=== PATIENT | female | born 1945 | race Caucasian/White ===

== ENCOUNTER 2017-06-08 13:44 | Inpatient (IN) | payer MEDICARE ==
[~2017-06-08] VITALS: Ht 170.2 cm; Wt 99.2 kg
[2017-06-08 14:41] LABS: BASOPHILS # (AUTO) 0.02 x10^3/uL (0-0.1); BASOPHILS % (AUTO) 0 % (0-1); EOSINOPHILS % (AUTO) 4 % (1-7); LYMPHOCYTES # (AUTO) 1.53 x10^3/uL (1-3.4); LYMPHOCYTES % (AUTO) 16 % (22-44); MD NO; MEAN CORPUSCULAR HEMOGLOBIN 28.7 pg (27.0-34.8); MEAN CORPUSCULAR HGB CONC 33.4 g/dL (32.4-35.8); MEAN CORPUSCULAR VOLUME 86.1 fL (80-100); MONOCYTES # (AUTO) 0.63 x10^3/uL (0.2-0.8); MONOCYTES % (AUTO) 6 % (2-9); NEUTROPHILS # (AUTO) 7.31 x10^3/uL (1.8-6.8); NEUTROPHILS % (AUTO) 74 % (42-75); PLATELET COUNT 178 x10^3/uL (130-400); RED BLOOD COUNT 4.67 x10^6/uL (3.82-5.3); RED CELL DISTRIBUTION WIDTH 15.6 % (9.6-15.2)
[2017-06-08 14:56] LABS: ALANINE AMINOTRANSFERASE 23 U/L (12-78); ALBUMIN 3.1 g/dL (3.4-5.0); ANION GAP 5 mmol/L (5-15); CALCIUM 8.4 mg/dL (8.5-10.1); CHLORIDE 95 mmol/L (98-107); CREATININE 0.64 mg/dL (0.55-1.02)
[2017-06-08 15:00] LABS: ALKALINE PHOSPHATASE 86 U/L (45-117); BILIRUBIN,TOTAL 0.5 mg/dL (0.2-1.0); TOTAL PROTEIN 6.8 g/dL (6.4-8.2); TROPONIN I < 0.015 ng/mL (0.000-0.045)
[2017-06-08] MEDS ORDERED: AMLO10TA2 PO (16:19)
[2017-06-08] MEDS ORDERED: CEVI30CA4 PO (16:23)
[2017-06-08] MEDS ORDERED: DULO60CA7 PO (16:25)
[2017-06-08] MEDS ORDERED: IPRA4AER INH (16:25)
[2017-06-08] MEDS ORDERED: DIGO125T10 PO (16:27)
[2017-06-08] MEDS ORDERED: APIX5TAB PO (16:29)
[2017-06-08] MEDS ORDERED: INSU200I SQ-INSULIN (16:29)
[2017-06-08] MEDS ORDERED: INSU100V8 SQ (16:30)
[2017-06-08] MEDS ORDERED: LEVO50TA5 PO (16:30)
[2017-06-08] MEDS ORDERED: BUDE10.2 INH (16:31)
[2017-06-08] MEDS ORDERED: TRAM50TA2 PO (16:32)
[2017-06-08] MEDS ORDERED: ACET-76 PO (16:33)
[2017-06-08] MEDS ORDERED: ASPI-515 PO (16:35)
[2017-06-08] MEDS ORDERED: SITA100T PO (16:35)
[2017-06-08] MEDS ORDERED: PREG75CA PO (16:36)
[2017-06-08 16:38] LABS: CULTURE INDICATED? YES; MICROSCOPIC INDICATED
[2017-06-08] MEDS ORDERED: MAGN400T7 PO (16:38)
[2017-06-08] MEDS ORDERED: MIRA50TA PO (16:39)
[2017-06-08] MEDS ORDERED: METO50TA82 PO (16:39)
[2017-06-08] MEDS ORDERED: NYST1000 PO (16:40)
[2017-06-08] MEDS ORDERED: PANT40TA5 PO (16:41)
[2017-06-08] MEDS ORDERED: SODI650T PO (16:42)
[2017-06-08] MEDS ORDERED: ALBU18HF INH (17:59)
[2017-06-08] MEDS ORDERED: ALBU2.5V11 NEB (18:01)
[2017-06-08] MEDS ORDERED: FUROSEMIDE 20 MG/2 ML IV ONE (18:30)
[2017-06-08] MEDS ORDERED: FUROSEMIDE 20 MG/2 ML ONE (19:24)
[2017-06-08] MEDS ORDERED: POLYETHYLENE GLYCOL 17 GM PACKET PO PRN (20:30)
[2017-06-08] MEDS ORDERED: morphine SULFATE 10 MG/ML, 1ML IVPush PRN (20:30)
[2017-06-08] MEDS ORDERED: BISACODYL 10 MG SUPP PR PRN (20:30)
[2017-06-08] MEDS ORDERED: ACETAMINOPHEN 325 MG TABLET PO PRN (20:30)
[2017-06-08] MEDS ORDERED: hydrALAzine 20 MG/ML, 1ML IVPush PRN (20:30)
[2017-06-08] MEDS ORDERED: ENALAPRILAT 1.25 MG/ML, 2ML IVPush PRN (20:30)
[2017-06-08] MEDS ORDERED: ONDANSETRON 2MG/ML, 2ML IVPush PRN (20:30)
[2017-06-08 20:45] VITALS: BP 153/71
[2017-06-08 20:48] LABS: FREE T4 (FREE THYROXINE) 1.16 ng/dL (0.76-1.46); THYROID STIMULATING HORMONE 1.12 mIU/L (0.358-3.740)
[2017-06-08 20:52] LABS: HEMOGLOBIN A1C 7.1 % (4.2-6.3)
[2017-06-08] MEDS ORDERED: APIXABAN 5 MG TABLET PO SCH (21:00)
[2017-06-08] MEDS: TEMPLATE NON-FORMULARY MED. (Cevimeline Hcl 30 MG) PO SCH (21:00)
[2017-06-08] MEDS ORDERED: SODIUM BICARBONATE 650 MG TABLET PO SCH (21:00)
[2017-06-08] MEDS: HEPARIN 5,000 UNITS/ML, 1ML SQ SCH (22:48)
[2017-06-08] MEDS: MAGNESIUM OXIDE 400 MG TABLET PO SCH (22:48)
[2017-06-08] MEDS: SODIUM BICARBONATE 650 MG TABLET PO SCH (22:48)
[2017-06-08] MEDS: PREGABALIN 75 MG CAPSULE PO SCH (22:49)
[2017-06-08] MEDS: INSULIN DETEMIR 100 UNITS/ML, PEN SQ-INSULIN SCH (22:49)
[2017-06-08] MEDS: INSULIN ASPART 100 UNITS/ML, PEN SQ-INSULIN SCH (22:50)
[2017-06-08] MEDS ORDERED: ALBUTEROL/IPRATROPIUM 2.5MG/0.5MG, 3 ML NPPB SCH (23:00)
[2017-06-09] MEDS: ALBUTEROL/IPRATROPIUM 2.5MG/0.5MG, 3 ML NPPB SCH ×4 (01:18→19:50)
[2017-06-09 01:50] VITALS: BP 146/75
[2017-06-09 05:16] LABS: BASOPHILS % (AUTO) 0 % (0-1); EOSINOPHILS % (AUTO) 0 % (1-7); LYMPHOCYTES # (AUTO) 0.74 x10^3/uL (1-3.4); LYMPHOCYTES % (AUTO) 9 % (22-44); MD NO; MEAN CORPUSCULAR HEMOGLOBIN 28.9 pg (27.0-34.8); MEAN CORPUSCULAR HGB CONC 33.5 g/dL (32.4-35.8); MEAN CORPUSCULAR VOLUME 86.4 fL (80-100); MEAN PLATELET VOLUME 8.3 fL (7.4-10.4); MONOCYTES # (AUTO) 0.05 x10^3/uL (0.2-0.8); MONOCYTES % (AUTO) 1 % (2-9); NEUTROPHILS # (AUTO) 7.24 x10^3/uL (1.8-6.8); NEUTROPHILS % (AUTO) 90 % (42-75); PLATELET COUNT 183 x10^3/uL (130-400); RED BLOOD COUNT 4.71 x10^6/uL (3.82-5.3); RED CELL DISTRIBUTION WIDTH 15.6 % (9.6-15.2)
[2017-06-09 05:24] LABS: ALANINE AMINOTRANSFERASE 23 U/L (12-78); ALBUMIN 3.1 g/dL (3.4-5.0); ANION GAP 6 mmol/L (5-15); CALCIUM 8.5 mg/dL (8.5-10.1); CHLORIDE 93 mmol/L (98-107); CHOLESTEROL, TOTAL 199 mg/dL (140-239); CREATININE 0.61 mg/dL (0.55-1.02)
[2017-06-09 05:26] LABS: ALKALINE PHOSPHATASE 82 U/L (45-117); BILIRUBIN,TOTAL 0.5 mg/dL (0.2-1.0); CHOL/HDL RATIO 6.9; HDL CHOL % 15 % (28-40); HDL CHOLESTEROL (DIRECT) 29 mg/dL (40-60); LDL CHOLESTEROL,CALCULATED 137 mg/dL (54-169); LDL/HDL RATIO 4.7 (0.5-3.0); TOTAL PROTEIN 6.8 g/dL (6.4-8.2); TRIGLYCERIDES 165 mg/dL (50-200); VLDL CHOLESTEROL 33 mg/dL (0-25)
[2017-06-09] MEDS: LEVOTHYROXINE 50 MCG TABLET PO SCH (05:39)
[2017-06-09 07:46] VITALS: BP 138/79
[2017-06-09] MEDS: TEMPLATE NON-FORMULARY MED. (Mirabegron** (Myrbetriq**) 50 MG) PO SCH (09:00)
[2017-06-09] MEDS: TEMPLATE NON-FORMULARY MED. (Cevimeline Hcl 30 MG) PO SCH ×3 (09:00→21:17)
[2017-06-09] MEDS: FLUTICASONE/VILANTEROL 200-25MCG/INH INH SCH (09:00)
[2017-06-09] MEDS: FUROSEMIDE 20 MG/2 ML IV SCH (09:00)
[2017-06-09] MEDS: INSULIN ASPART 100 UNITS/ML, PEN SQ-INSULIN SCH ×4 (10:20→21:17)
[2017-06-09] MEDS: HEPARIN 5,000 UNITS/ML, 1ML SQ SCH ×3 (10:22→23:11)
[2017-06-09] MEDS: INSULIN DETEMIR 100 UNITS/ML, PEN SQ-INSULIN SCH ×2 (10:22→21:17)
[2017-06-09] MEDS: DIGOXIN 0.125 MG TABLET PO SCH (10:23)
[2017-06-09] MEDS: AMLODIPINE 5 MG TABLET PO SCH (10:23)
[2017-06-09] MEDS: METOPROLOL TARTRATE 50 MG TABLET PO SCH (10:23)
[2017-06-09] MEDS: ASPIRIN 81 MG TABLET EC PO SCH (10:24)
[2017-06-09] MEDS: DULOXETINE 30 MG CAPSULE.DR PO SCH (10:24)
[2017-06-09] MEDS: SODIUM BICARBONATE 650 MG TABLET PO SCH ×2 (10:24→21:16)
[2017-06-09] MEDS: SITAGLIPTIN 50MG TABLET PO SCH (10:25)
[2017-06-09] MEDS: PANTOPROZOLE 40MG TABLET PO SCH (10:25)
[2017-06-09] MEDS: PREGABALIN 75 MG CAPSULE PO SCH ×2 (10:25→21:16)
[2017-06-09] MEDS: MAGNESIUM OXIDE 400 MG TABLET PO SCH ×3 (10:25→21:16)
[2017-06-09] MEDS: SENNA/DOCUSATE TABLET PO SCH (10:26)
[2017-06-09 12:56] VITALS: BP 145/84
[2017-06-09 19:13] VITALS: BP 117/52
[2017-06-10 01:00] VITALS: BP 139/70
[2017-06-10] MEDS: LEVOTHYROXINE 50 MCG TABLET PO SCH (05:34)
[2017-06-10 06:05] VITALS: BP 148/79
[2017-06-10] MEDS: INSULIN ASPART 100 UNITS/ML, PEN SQ-INSULIN SCH ×4 (07:00→20:59)
[2017-06-10] MEDS: ALBUTEROL/IPRATROPIUM 2.5MG/0.5MG, 3 ML NPPB SCH ×4 (07:40→20:10)
[2017-06-10] MEDS: HEPARIN 5,000 UNITS/ML, 1ML SQ SCH ×3 (08:19→23:16)
[2017-06-10] MEDS: FUROSEMIDE 20 MG/2 ML IV SCH (08:19)
[2017-06-10] MEDS: SITAGLIPTIN 50MG TABLET PO SCH (08:19)
[2017-06-10] MEDS: ASPIRIN 81 MG TABLET EC PO SCH (08:20)
[2017-06-10] MEDS: INSULIN DETEMIR 100 UNITS/ML, PEN SQ-INSULIN SCH ×2 (08:20→20:58)
[2017-06-10] MEDS: MAGNESIUM OXIDE 400 MG TABLET PO SCH ×3 (08:21→20:58)
[2017-06-10] MEDS: METOPROLOL TARTRATE 50 MG TABLET PO SCH (08:21)
[2017-06-10] MEDS: PREGABALIN 75 MG CAPSULE PO SCH ×2 (08:21→20:58)
[2017-06-10] MEDS: AMLODIPINE 5 MG TABLET PO SCH (08:21)
[2017-06-10] MEDS: DULOXETINE 30 MG CAPSULE.DR PO SCH (08:22)
[2017-06-10] MEDS: TEMPLATE NON-FORMULARY MED. (Cevimeline Hcl 30 MG) PO SCH ×3 (08:22→20:59)
[2017-06-10] MEDS: SENNA/DOCUSATE TABLET PO SCH (08:22)
[2017-06-10] MEDS: PANTOPROZOLE 40MG TABLET PO SCH (08:22)
[2017-06-10] MEDS: SODIUM BICARBONATE 650 MG TABLET PO SCH ×2 (08:22→20:58)
[2017-06-10] MEDS: DIGOXIN 0.125 MG TABLET PO SCH (08:23)
[2017-06-10] MEDS: TEMPLATE NON-FORMULARY MED. (Mirabegron** (Myrbetriq**) 50 MG) PO SCH (08:23)
[2017-06-10] MEDS ORDERED: VANCOMYCIN PER PHARMACY MC PRN (09:00)
[2017-06-10] MEDS ORDERED: VANCOMYCIN PMX 1GM/200ML 200 ML IV ONE (09:00)
[2017-06-10] MEDS ORDERED: PHARMACOKINETIC MONITORING MC PRN (10:00)
[2017-06-10] MEDS: FLUTICASONE/VILANTEROL 200-25MCG/INH INH SCH (10:05)
[2017-06-10] MEDS: CEFTRIAXONE PMX 1GM/50ML 50 ML IV SCH (10:05)
[2017-06-10] MEDS: VANCOMYCIN 1,800 MG in SODIUM CHLORIDE 0.9% 250 ML IV SCH (12:51)
[2017-06-10 14:00] VITALS: BP 139/70
[2017-06-10 16:19] VITALS: BP 139/70
[2017-06-10] MEDS ORDERED: MAGNESIUM SULFATE PMX 2GM/50ML 50 ML IV ONE (17:00)
[2017-06-10] MEDS: CARVEDILOL 6.25 MG TABLET PO SCH (19:14)
[2017-06-10 19:23] VITALS: BP 160/80
[2017-06-11 00:25] VITALS: BP 136/69
[2017-06-11] MEDS: LEVOTHYROXINE 50 MCG TABLET PO SCH (05:52)
[2017-06-11] MEDS: CARVEDILOL 6.25 MG TABLET PO SCH ×2 (05:53→17:09)
[2017-06-11] MEDS: INSULIN ASPART 100 UNITS/ML, PEN SQ-INSULIN SCH ×4 (07:00→22:05)
[2017-06-11] MEDS: ALBUTEROL/IPRATROPIUM 2.5MG/0.5MG, 3 ML NPPB SCH ×4 (07:25→19:20)
[2017-06-11 07:40] VITALS: BP 133/70
[2017-06-11] MEDS: TEMPLATE NON-FORMULARY MED. (Cevimeline Hcl 30 MG) PO SCH ×3 (08:39→22:05)
[2017-06-11] MEDS: TEMPLATE NON-FORMULARY MED. (Mirabegron** (Myrbetriq**) 50 MG) PO SCH (08:39)
[2017-06-11] MEDS: HEPARIN 5,000 UNITS/ML, 1ML SQ SCH ×2 (08:58→17:06)
[2017-06-11] MEDS: INSULIN DETEMIR 100 UNITS/ML, PEN SQ-INSULIN SCH ×2 (08:59→22:05)
[2017-06-11] MEDS: DULOXETINE 30 MG CAPSULE.DR PO SCH (08:59)
[2017-06-11] MEDS: FLUTICASONE/VILANTEROL 200-25MCG/INH INH SCH (08:59)
[2017-06-11] MEDS: ASPIRIN 81 MG TABLET EC PO SCH (08:59)
[2017-06-11] MEDS: FUROSEMIDE 20 MG/2 ML IV SCH (08:59)
[2017-06-11] MEDS: PANTOPROZOLE 40MG TABLET PO SCH (09:00)
[2017-06-11] MEDS: AMLODIPINE 5 MG TABLET PO SCH (09:00)
[2017-06-11] MEDS: OXYcodone IR 5MG TABLET PO PRN ×2 (09:00→17:06)
[2017-06-11] MEDS: SODIUM BICARBONATE 650 MG TABLET PO SCH ×2 (09:00→22:04)
[2017-06-11] MEDS: MAGNESIUM OXIDE 400 MG TABLET PO SCH ×3 (09:00→22:04)
[2017-06-11] MEDS: SITAGLIPTIN 50MG TABLET PO SCH (09:00)
[2017-06-11] MEDS: SENNA/DOCUSATE TABLET PO SCH (09:00)
[2017-06-11] MEDS: PREGABALIN 75 MG CAPSULE PO SCH ×2 (09:00→22:04)
[2017-06-11] MEDS: DIGOXIN 0.125 MG TABLET PO SCH (09:00)
[2017-06-11] MEDS: CEFTRIAXONE PMX 1GM/50ML 50 ML IV SCH (12:18)
[2017-06-11] MEDS: VANCOMYCIN 1,800 MG in SODIUM CHLORIDE 0.9% 250 ML IV SCH (13:24)
[2017-06-11 14:00] VITALS: BP 146/70
[2017-06-11 17:00] VITALS: BP 146/70
[2017-06-11 20:22] VITALS: BP 148/72
[2017-06-12 01:28] VITALS: BP 139/56
[2017-06-12] MEDS: HEPARIN 5,000 UNITS/ML, 1ML SQ SCH ×3 (01:41→18:26)
[2017-06-12 05:23] LABS: ANION GAP 6 mmol/L (5-15); CALCIUM 8.7 mg/dL (8.5-10.1); CHLORIDE 95 mmol/L (98-107)
[2017-06-12 05:31] LABS: BASOPHILS # (AUTO) 0.04 x10^3/uL (0-0.1); BASOPHILS % (AUTO) 1 % (0-1); EOSINOPHILS # (AUTO) 0.12 x10^3/uL (0-0.4); EOSINOPHILS % (AUTO) 1 % (1-7); LYMPHOCYTES # (AUTO) 2.13 x10^3/uL (1-3.4); LYMPHOCYTES % (AUTO) 23 % (22-44); MD NO; MEAN CORPUSCULAR VOLUME 85.4 fL (80-100); MEAN PLATELET VOLUME 7.5 fL (7.4-10.4); MONOCYTES # (AUTO) 0.87 x10^3/uL (0.2-0.8); MONOCYTES % (AUTO) 10 % (2-9); NEUTROPHILS # (AUTO) 5.93 x10^3/uL (1.8-6.8); NEUTROPHILS % (AUTO) 65 % (42-75); PLATELET COUNT 226 x10^3/uL (130-400); RED CELL DISTRIBUTION WIDTH 15.4 % (9.6-15.2)
[2017-06-12 05:51] LABS: CREATININE 0.68 mg/dL (0.55-1.02)
[2017-06-12] MEDS: LEVOTHYROXINE 50 MCG TABLET PO SCH (06:07)
[2017-06-12] MEDS: CARVEDILOL 6.25 MG TABLET PO SCH ×2 (06:08→18:25)
[2017-06-12] MEDS: INSULIN ASPART 100 UNITS/ML, PEN SQ-INSULIN SCH ×4 (07:00→20:16)
[2017-06-12 07:42] VITALS: BP 138/82
[2017-06-12] MEDS: ALBUTEROL/IPRATROPIUM 2.5MG/0.5MG, 3 ML NPPB SCH ×4 (08:20→19:41)
[2017-06-12] MEDS: INSULIN DETEMIR 100 UNITS/ML, PEN SQ-INSULIN SCH ×2 (08:30→20:17)
[2017-06-12] MEDS: FUROSEMIDE 20 MG/2 ML IV SCH (08:36)
[2017-06-12] MEDS: FLUTICASONE/VILANTEROL 200-25MCG/INH INH SCH (08:36)
[2017-06-12] MEDS: PREGABALIN 75 MG CAPSULE PO SCH ×2 (08:37→20:15)
[2017-06-12] MEDS: MAGNESIUM OXIDE 400 MG TABLET PO SCH ×3 (08:37→20:15)
[2017-06-12] MEDS: DIGOXIN 0.125 MG TABLET PO SCH (08:37)
[2017-06-12] MEDS: SENNA/DOCUSATE TABLET PO SCH (08:37)
[2017-06-12] MEDS: ASPIRIN 81 MG TABLET EC PO SCH (08:37)
[2017-06-12] MEDS: AMLODIPINE 5 MG TABLET PO SCH (08:37)
[2017-06-12] MEDS: SODIUM BICARBONATE 650 MG TABLET PO SCH ×2 (08:37→20:15)
[2017-06-12] MEDS: PANTOPROZOLE 40MG TABLET PO SCH (08:37)
[2017-06-12] MEDS: DULOXETINE 30 MG CAPSULE.DR PO SCH (08:38)
[2017-06-12] MEDS: TEMPLATE NON-FORMULARY MED. (Mirabegron** (Myrbetriq**) 50 MG) PO SCH (08:38)
[2017-06-12] MEDS: TEMPLATE NON-FORMULARY MED. (Cevimeline Hcl 30 MG) PO SCH ×3 (08:38→20:17)
[2017-06-12] MEDS: CEFTRIAXONE PMX 1GM/50ML 50 ML IV SCH (08:51)
[2017-06-12] MEDS: SITAGLIPTIN 50MG TABLET PO SCH (08:57)
[2017-06-12] MEDS ORDERED: POTASSIUM CHLORIDE 20 MEQ TAB.ER.PRT PO ONE (10:00)
[2017-06-12] MEDS: VANCOMYCIN 1,800 MG in SODIUM CHLORIDE 0.9% 250 ML IV SCH (14:44)
[2017-06-12 14:49] VITALS: BP 135/70
[2017-06-12 20:00] VITALS: BP 148/76
[2017-06-13 01:20] VITALS: BP 163/80
[2017-06-13] MEDS: CARVEDILOL 6.25 MG TABLET PO SCH ×2 (05:23→17:10)
[2017-06-13] MEDS: LEVOTHYROXINE 50 MCG TABLET PO SCH (05:23)
[2017-06-13] MEDS: HEPARIN 5,000 UNITS/ML, 1ML SQ SCH ×3 (05:23→21:38)
[2017-06-13 06:04] LABS: CHLORIDE 96 mmol/L (98-107)
[2017-06-13 06:10] LABS: ANION GAP 6 mmol/L (5-15); CALCIUM 8.9 mg/dL (8.5-10.1)
[2017-06-13 06:47] VITALS: BP 165/80
[2017-06-13] MEDS: INSULIN ASPART 100 UNITS/ML, PEN SQ-INSULIN SCH ×4 (07:00→21:40)
[2017-06-13] MEDS: ALBUTEROL/IPRATROPIUM 2.5MG/0.5MG, 3 ML NPPB SCH ×4 (08:00→19:58)
[2017-06-13] MEDS: FLUTICASONE/VILANTEROL 200-25MCG/INH INH SCH (08:07)
[2017-06-13] MEDS: INSULIN DETEMIR 100 UNITS/ML, PEN SQ-INSULIN SCH ×2 (08:09→21:39)
[2017-06-13] MEDS: MAGNESIUM OXIDE 400 MG TABLET PO SCH ×3 (08:10→21:38)
[2017-06-13] MEDS: DULOXETINE 30 MG CAPSULE.DR PO SCH (08:10)
[2017-06-13] MEDS: ASPIRIN 81 MG TABLET EC PO SCH (08:10)
[2017-06-13] MEDS: PANTOPROZOLE 40MG TABLET PO SCH (08:10)
[2017-06-13] MEDS: SENNA/DOCUSATE TABLET PO SCH (08:10)
[2017-06-13] MEDS: AMLODIPINE 5 MG TABLET PO SCH (08:10)
[2017-06-13] MEDS: PREGABALIN 75 MG CAPSULE PO SCH ×2 (08:10→21:38)
[2017-06-13] MEDS: SODIUM BICARBONATE 650 MG TABLET PO SCH ×2 (08:10→21:38)
[2017-06-13] MEDS: SITAGLIPTIN 50MG TABLET PO SCH (08:10)
[2017-06-13] MEDS: TEMPLATE NON-FORMULARY MED. (Mirabegron** (Myrbetriq**) 50 MG) PO SCH (08:11)
[2017-06-13] MEDS: TEMPLATE NON-FORMULARY MED. (Cevimeline Hcl 30 MG) PO SCH ×3 (08:11→21:00)
[2017-06-13] MEDS: FUROSEMIDE 20 MG/2 ML IV SCH (08:11)
[2017-06-13] MEDS: DIGOXIN 0.125 MG TABLET PO SCH (09:48)
[2017-06-13] MEDS: CEFTRIAXONE PMX 1GM/50ML 50 ML IV SCH (09:48)
[2017-06-13] MEDS: VANCOMYCIN 1,800 MG in SODIUM CHLORIDE 0.9% 250 ML IV SCH (13:32)
[2017-06-13 15:07] VITALS: BP 137/75
[2017-06-13 20:30] VITALS: BP 149/76
[2017-06-14 01:18] VITALS: BP 146/71
[2017-06-14] MEDS: OXYcodone IR 5MG TABLET PO PRN ×2 (03:45→10:50)
[2017-06-14] MEDS: LEVOTHYROXINE 50 MCG TABLET PO SCH (05:56)
[2017-06-14] MEDS: HEPARIN 5,000 UNITS/ML, 1ML SQ SCH ×2 (05:56→13:00)
[2017-06-14] MEDS: CARVEDILOL 6.25 MG TABLET PO SCH (05:57)
[2017-06-14 06:35] VITALS: BP 152/82
[2017-06-14] MEDS: ALBUTEROL/IPRATROPIUM 2.5MG/0.5MG, 3 ML NPPB SCH ×2 (07:00→11:00)
[2017-06-14] MEDS: INSULIN ASPART 100 UNITS/ML, PEN SQ-INSULIN SCH ×2 (07:00→11:00)
[2017-06-14] MEDS: INSULIN DETEMIR 100 UNITS/ML, PEN SQ-INSULIN SCH (08:30)
[2017-06-14] MEDS: FLUTICASONE/VILANTEROL 200-25MCG/INH INH SCH (08:49)
[2017-06-14] MEDS: FUROSEMIDE 20 MG/2 ML IV SCH (08:50)
[2017-06-14] MEDS: TEMPLATE NON-FORMULARY MED. (Mirabegron** (Myrbetriq**) 50 MG) PO SCH (08:51)
[2017-06-14] MEDS: TEMPLATE NON-FORMULARY MED. (Cevimeline Hcl 30 MG) PO SCH (08:51)
[2017-06-14] MEDS: MAGNESIUM OXIDE 400 MG TABLET PO SCH (08:52)
[2017-06-14] MEDS: DULOXETINE 30 MG CAPSULE.DR PO SCH (08:52)
[2017-06-14] MEDS: SITAGLIPTIN 50MG TABLET PO SCH (08:52)
[2017-06-14] MEDS: DIGOXIN 0.125 MG TABLET PO SCH (08:52)
[2017-06-14] MEDS: ASPIRIN 81 MG TABLET EC PO SCH (08:52)
[2017-06-14] MEDS: PREGABALIN 75 MG CAPSULE PO SCH (08:52)
[2017-06-14] MEDS: SENNA/DOCUSATE TABLET PO SCH (08:53)
[2017-06-14] MEDS: PANTOPROZOLE 40MG TABLET PO SCH (08:53)
[2017-06-14] MEDS: AMLODIPINE 5 MG TABLET PO SCH (08:53)
[2017-06-14] MEDS: SODIUM BICARBONATE 650 MG TABLET PO SCH (08:53)
[2017-06-14] MEDS: CEFTRIAXONE PMX 1GM/50ML 50 ML IV SCH (10:51)
[2017-06-14] MEDS: VANCOMYCIN 1,800 MG in SODIUM CHLORIDE 0.9% 250 ML IV SCH (13:00)
[2017-06-14] MEDS ORDERED: CEFD300C37 PO (13:18)
[2017-06-14] MEDS ORDERED: IPRA3AMP NPPB (13:18)
[2017-06-14] MEDS ORDERED: INSU100I18 SQ-INSULIN (13:18)
[2017-06-14] MEDS ORDERED: INSU100V8 SQ (13:18)
[2017-06-14] MEDS ORDERED: FURO-93 PO (13:18)
[2017-06-14] MEDS ORDERED: PRED5TAB PO (13:18)
[2017-06-14] MEDS ORDERED: CARV6.2512 PO (13:18)
[2017-06-14] MEDS ORDERED: AMOX1TAB64 PO (13:18)
[2017-06-14] MEDS ORDERED: POTA20TA89 PO (13:23)
[2017-06-14 13:55] VITALS: BP 153/70
[2017-06-14] MEDS ORDERED: PNEUMOCOCCAL 23 VACCINE IM-VACC ONE (14:00)
[2017-06-14] MEDS ORDERED: FLU VACC QS2017-18 (36MOS+) UP/PF 0.5 ML IM-VACC ONE (14:00)
== END 2017-06-14 16:12 | DRG 291 ==
LOC: ED 14:54 → EDIP 18:09 → 3NE 21:42
PROVIDERS: ADMIT Internal Medicine; ATTEND Family Medicine
PROC: 0T9B70Z Drainage of Bladder with Drainage Device, Via Natural or Artificial Opening (ICD-10-PCS; principal; 2017-06-08)
DX: I11.0 Hypertensive heart disease with heart failure (principal); J96.21 Acute and chronic respiratory failure with hypoxia; E44.0 Moderate protein-calorie malnutrition; D68.59 Other primary thrombophilia; E11.9 Type 2 diabetes mellitus without complications; B95.2 Enterococcus as the cause of diseases classified elsewhere; J44.1 Chronic obstructive pulmonary disease with (acute) exacerbation; N39.0 Urinary tract infection, site not specified; I50.33 Acute on chronic diastolic (congestive) heart failure; Z99.81 Dependence on supplemental oxygen; B96.20 Unspecified Escherichia coli [E. coli] as the cause of diseases classified elsewhere; E03.9 Hypothyroidism, unspecified; E66.9 Obesity, unspecified; Z68.34 Body mass index [BMI] 34.0-34.9, adult; I35.0 Nonrheumatic aortic (valve) stenosis; K21.9 Gastro-esophageal reflux disease without esophagitis; N32.81 Overactive bladder; Z75.1 Person awaiting admission to adequate facility elsewhere; Z79.4 Long term (current) use of insulin; Z79.82 Long term (current) use of aspirin; Z82.3 Family history of stroke; Z87.891 Personal history of nicotine dependence; Z23 Encounter for immunization
CPT/HCPCS: 36415; 36600; 70450; 71010; 80048; 80053; 80061; 80162; 80202; 81001; 82306; 82607; 82803; 82962; 83036; 83735; 83880; 84439; 84443; 84484; 85025; 87077; 87086; 87186; 90686; 90732; 93005; 93306; 94640; J0696; J1644; J1815; J3370; J7620; J1940; J3475; J7050; J7512

== ENCOUNTER → 2017-12-12 | Outpatient (CLI) | payer MEDICARE, OTHER ==
[~2017-12-12] MED LIST: ACET-76 PO; ALBU18HF INH; ALBU2.5V11 NEB; AMLO10TA2 PO; AMOX1TAB64 PO; APIX5TAB PO; ASPI-515 PO; BUDE10.2 INH; CARV6.2512 PO; CEFD300C37 PO; CEVI30CA4 PO; DIGO125T10 PO; DULO60CA7 PO; FURO-93 PO; INSU100I18 SQ-INSULIN; INSU100V8 SQ; INSU200I SQ-INSULIN; IPRA3AMP NPPB; IPRA4AER INH; LEVO50TA5 PO; MAGN400T7 PO; METO50TA82 PO; MIRA50TA PO; NYST1000 PO; PANT40TA5 PO; POTA20TA89 PO; PRED5TAB PO; PREG75CA PO; SITA100T PO; SODI650T PO; TRAM50TA2 PO
== END | disposition home or self-care (01) ==
LOC: CFH 07:52
PROVIDERS: ATTEND Nurse Practitioner Primary Care
DX: R79.9 Abnormal finding of blood chemistry, unspecified (principal)
CPT/HCPCS: 76700

== ENCOUNTER 2017-12-26 21:09 | Inpatient (IN) | payer MEDICARE, OTHER ==
[~2017-12-26] VITALS: Ht 152.4 cm; Wt 95.2 kg
[2017-12-26 21:52] LABS: BASOPHILS # (AUTO) 0.06 x10^3/uL (0-0.1); BASOPHILS % (AUTO) 0 % (0-1); EOSINOPHILS # (AUTO) 0.21 x10^3/uL (0-0.4); EOSINOPHILS % (AUTO) 1 % (1-7); LYMPHOCYTES # (AUTO) 2.05 x10^3/uL (1-3.4); LYMPHOCYTES % (AUTO) 14 % (22-44); MD NO; MEAN CORPUSCULAR HEMOGLOBIN 28.2 pg (27.0-34.8); MEAN CORPUSCULAR HGB CONC 33.9 g/dL (32.4-35.8); MEAN PLATELET VOLUME 7.3 fL (7.4-10.4); MONOCYTES # (AUTO) 0.71 x10^3/uL (0.2-0.8); MONOCYTES % (AUTO) 5 % (2-9); NEUTROPHILS # (AUTO) 11.81 x10^3/uL (1.8-6.8); NEUTROPHILS % (AUTO) 80 % (42-75); PLATELET COUNT 280 x10^3/uL (130-400); RED BLOOD COUNT 5.09 x10^6/uL (3.82-5.3); RED CELL DISTRIBUTION WIDTH 14.6 % (9.6-15.2)
[2017-12-26] MEDS ORDERED: SODIUM CHLORIDE FLUSH 10ML SYR IVF ONE ×2 (22:00→23:00)
[2017-12-26 22:03] LABS: ALANINE AMINOTRANSFERASE 22 U/L (12-78); ALBUMIN 3.5 g/dL (3.4-5.0); ANION GAP 8 mmol/L (5-15); CALCIUM 8.4 mg/dL (8.5-10.1); CHLORIDE 84 mmol/L (98-107); CREATININE 0.56 mg/dL (0.55-1.02)
[2017-12-26] MEDS ORDERED: POTA20TA89 PO (22:03)
[2017-12-26] MEDS ORDERED: ERGO500017 PO (22:03)
[2017-12-26] MEDS ORDERED: HYDR25TA11 PO (22:03)
[2017-12-26] MEDS ORDERED: TRAZ50TA18 PO (22:03)
[2017-12-26] MEDS ORDERED: TIOT18CA INH (22:03)
[2017-12-26] MEDS ORDERED: OMEP-110 PO (22:03)
[2017-12-26] MEDS ORDERED: IBUP-1484 PO (22:03)
[2017-12-26] MEDS ORDERED: ATOR40TA78 PO (22:03)
[2017-12-26] MEDS ORDERED: CIPR500T3 PO (22:03)
[2017-12-26 22:07] LABS: ALKALINE PHOSPHATASE 166 U/L (45-117); BILIRUBIN,TOTAL 0.7 mg/dL (0.2-1.0); TOTAL PROTEIN 6.9 g/dL (6.4-8.2)
[2017-12-26 22:10] LABS: TROPONIN I < 0.015 ng/mL (0.000-0.045)
[2017-12-26] MEDS ORDERED: SODIUM CHLORIDE 0.9% 1,000 ML IV ONE (22:50)
[2017-12-26] MEDS ORDERED: SODIUM CHLORIDE 0.9% 1,000ML IVBOLUS ONE (23:00)
[2017-12-26] MEDS ORDERED: LIDOCAINE-MPF 2% ,5ML ONE (23:29)
[2017-12-26 23:30] LABS: MICROSCOPIC NOT IND
[2017-12-26] MEDS ORDERED: LIDOCAINE 2%, 20ML SQ ONE (23:30)
[2017-12-26 23:31] LABS: CULTURE INDICATED? NO
[2017-12-27] MEDS ORDERED: ONDANSETRON 2MG/ML, 2ML IVPush PRN
[2017-12-27] MEDS ORDERED: TRAZODONE 50MG TABLET PO PRN
[2017-12-27] MEDS ORDERED: POLYETHYLENE GLYCOL 17 GM PACKET PO PRN
[2017-12-27] MEDS ORDERED: ERGOCALCIFEROL 50,000 UNIT CAPSULE PO SCH
[2017-12-27 01:00] VITALS: BP 170/90
[2017-12-27] MEDS: ACETAMINOPHEN 325 MG TABLET PO PRN ×2 (01:17→19:36)
[2017-12-27] MEDS: HEPARIN 5,000 UNITS/ML, 1ML SQ SCH ×3 (01:17→17:25)
[2017-12-27] MEDS ORDERED: ALBUTEROL/IPRATROPIUM 2.5MG/0.5MG, 3 ML ONE (01:47)
[2017-12-27 04:00] VITALS: BP 124/62
[2017-12-27 04:26] LABS: BASOPHILS # (AUTO) 0.04 x10^3/uL (0-0.1); BASOPHILS % (AUTO) 0 % (0-1); EOSINOPHILS # (AUTO) 0.22 x10^3/uL (0-0.4); EOSINOPHILS % (AUTO) 2 % (1-7); LYMPHOCYTES # (AUTO) 1.93 x10^3/uL (1-3.4); LYMPHOCYTES % (AUTO) 17 % (22-44); MD NO; MEAN CORPUSCULAR HGB CONC 33.4 g/dL (32.4-35.8); MONOCYTES # (AUTO) 0.79 x10^3/uL (0.2-0.8); MONOCYTES % (AUTO) 7 % (2-9); NEUTROPHILS # (AUTO) 8.48 x10^3/uL (1.8-6.8); NEUTROPHILS % (AUTO) 74 % (42-75); PLATELET COUNT 278 x10^3/uL (130-400); RED BLOOD COUNT 5.24 x10^6/uL (3.82-5.3); RED CELL DISTRIBUTION WIDTH 14.4 % (9.6-15.2)
[2017-12-27 04:35] LABS: ANION GAP 4 mmol/L (5-15); CALCIUM 8.5 mg/dL (8.5-10.1); CHLORIDE 95 mmol/L (98-107)
[2017-12-27 04:38] LABS: CREATININE 0.55 mg/dL (0.55-1.02)
[2017-12-27] MEDS: SODIUM CHLORIDE 0.9% 1,000 ML IV SCH ×2 (04:48→22:42)
[2017-12-27] MEDS: CARVEDILOL 6.25 MG TABLET PO SCH ×2 (05:25→19:36)
[2017-12-27] MEDS: SODIUM BICARBONATE 650 MG TABLET PO SCH ×4 (05:26→22:41)
[2017-12-27] MEDS: ALBUTEROL/IPRATROPIUM 2.5MG/0.5MG, 3 ML NPPB SCH ×4 (07:25→20:00)
[2017-12-27] MEDS: INSULIN LISPRO 100 UNITS/ML, PEN SQ-INSULIN SCH ×4 (07:30→21:00)
[2017-12-27] MEDS ORDERED: MAGNESIUM SULFATE PMX 2GM/50ML 50 ML IV ONE (07:30)
[2017-12-27] MEDS: FLUTICASONE/VILANTEROL 200-25MCG/INH INH SCH ×2 (09:00→17:27)
[2017-12-27] MEDS: Mirabegron** (Myrbetriq**) 50 MG) HOMEMEDPO SCH (09:00)
[2017-12-27] MEDS: IPRATROPIUM 0.5 MG/2.5 ML INHA HHN SCH ×2 (09:00→20:10)
[2017-12-27] MEDS: LEVOTHYROXINE 50 MCG TABLET PO SCH (09:34)
[2017-12-27] MEDS: DULOXETINE 30 MG CAPSULE.DR PO SCH (09:35)
[2017-12-27] MEDS: MAGNESIUM OXIDE 400 MG TABLET PO SCH ×3 (09:35→22:41)
[2017-12-27] MEDS: OMEPRAZOLE 20 MG CAPSULE.DR PO SCH (09:35)
[2017-12-27 13:08] VITALS: BP 149/79
[2017-12-27 19:42] VITALS: BP 164/91
[2017-12-27] MEDS: ATORVASTATIN 40 MG TABLET PO SCH (22:41)
[2017-12-28] MEDS: HEPARIN 5,000 UNITS/ML, 1ML SQ SCH ×4 (00:52→23:58)
[2017-12-28] MEDS: IPRATROPIUM 0.5 MG/2.5 ML INHA HHN SCH (03:00)
[2017-12-28 04:00] VITALS: BP 150/85
[2017-12-28 04:38] LABS: ANION GAP 5 mmol/L (5-15); CALCIUM 8.1 mg/dL (8.5-10.1); CHLORIDE 97 mmol/L (98-107)
[2017-12-28 04:39] LABS: CREATININE 0.48 mg/dL (0.55-1.02)
[2017-12-28] MEDS: CARVEDILOL 6.25 MG TABLET PO SCH ×2 (06:21→18:26)
[2017-12-28] MEDS: SODIUM BICARBONATE 650 MG TABLET PO SCH ×4 (06:21→21:27)
[2017-12-28] MEDS: ALBUTEROL/IPRATROPIUM 2.5MG/0.5MG, 3 ML NPPB SCH ×4 (06:56→19:23)
[2017-12-28] MEDS: INSULIN LISPRO 100 UNITS/ML, PEN SQ-INSULIN SCH ×4 (07:00→21:00)
[2017-12-28 07:29] VITALS: BP 138/73
[2017-12-28] MEDS: Mirabegron** (Myrbetriq**) 50 MG) HOMEMEDPO SCH (07:41)
[2017-12-28] MEDS: MAGNESIUM OXIDE 400 MG TABLET PO SCH ×3 (07:59→21:27)
[2017-12-28] MEDS: OMEPRAZOLE 20 MG CAPSULE.DR PO SCH (07:59)
[2017-12-28] MEDS: DULOXETINE 30 MG CAPSULE.DR PO SCH (08:00)
[2017-12-28] MEDS: LEVOTHYROXINE 50 MCG TABLET PO SCH (08:00)
[2017-12-28 12:24] VITALS: BP 146/84
[2017-12-28] MEDS: ACETAMINOPHEN 325 MG TABLET PO PRN (19:44)
[2017-12-28 19:50] VITALS: BP 162/78
[2017-12-28] MEDS: ATORVASTATIN 40 MG TABLET PO SCH (21:27)
[2017-12-29 02:00] VITALS: BP 162/80
[2017-12-29 05:13] LABS: ANION GAP 2 mmol/L (5-15); CALCIUM 8.2 mg/dL (8.5-10.1); CHLORIDE 96 mmol/L (98-107)
[2017-12-29 05:14] LABS: CREATININE 0.63 mg/dL (0.55-1.02)
[2017-12-29] MEDS: CARVEDILOL 6.25 MG TABLET PO SCH ×2 (06:09→17:12)
[2017-12-29] MEDS: SODIUM BICARBONATE 650 MG TABLET PO SCH ×4 (06:09→20:45)
[2017-12-29] MEDS: ALBUTEROL/IPRATROPIUM 2.5MG/0.5MG, 3 ML NPPB SCH ×4 (06:46→23:46)
[2017-12-29] MEDS ORDERED: MAGNESIUM SULFATE PMX 2GM/50ML 50 ML IV ONE (07:00)
[2017-12-29] MEDS: INSULIN LISPRO 100 UNITS/ML, PEN SQ-INSULIN SCH ×4 (07:00→20:47)
[2017-12-29 07:01] VITALS: BP 151/84
[2017-12-29] MEDS: LEVOTHYROXINE 50 MCG TABLET PO SCH (08:51)
[2017-12-29] MEDS: Mirabegron** (Myrbetriq**) 50 MG) HOMEMEDPO SCH (08:52)
[2017-12-29] MEDS: HEPARIN 5,000 UNITS/ML, 1ML SQ SCH ×3 (09:02→23:25)
[2017-12-29] MEDS: MAGNESIUM OXIDE 400 MG TABLET PO SCH ×3 (09:03→20:44)
[2017-12-29] MEDS: DULOXETINE 30 MG CAPSULE.DR PO SCH (09:03)
[2017-12-29] MEDS: OMEPRAZOLE 20 MG CAPSULE.DR PO SCH (09:04)
[2017-12-29] MEDS: FLUTICASONE/VILANTEROL 200-25MCG/INH INH SCH (09:05)
[2017-12-29 12:22] VITALS: BP 151/78
[2017-12-29] MEDS ORDERED: INSU100V8 SQ (15:54)
[2017-12-29 20:00] VITALS: BP 144/75
[2017-12-29] MEDS: ATORVASTATIN 40 MG TABLET PO SCH (20:45)
[2017-12-30 02:00] VITALS: BP 148/78
[2017-12-30] MEDS: SODIUM BICARBONATE 650 MG TABLET PO SCH ×4 (05:21→20:07)
[2017-12-30] MEDS: CARVEDILOL 6.25 MG TABLET PO SCH ×2 (05:22→17:14)
[2017-12-30 06:59] VITALS: BP 156/90
[2017-12-30] MEDS: LEVOTHYROXINE 50 MCG TABLET PO SCH (07:26)
[2017-12-30] MEDS: HEPARIN 5,000 UNITS/ML, 1ML SQ SCH ×2 (07:27→16:26)
[2017-12-30] MEDS: Mirabegron** (Myrbetriq**) 50 MG) HOMEMEDPO SCH (07:38)
[2017-12-30] MEDS: ALBUTEROL/IPRATROPIUM 2.5MG/0.5MG, 3 ML NPPB SCH ×3 (08:09→19:58)
[2017-12-30] MEDS: OMEPRAZOLE 20 MG CAPSULE.DR PO SCH (09:01)
[2017-12-30] MEDS: INSULIN LISPRO 100 UNITS/ML, PEN SQ-INSULIN SCH ×4 (09:01→20:07)
[2017-12-30] MEDS: MAGNESIUM OXIDE 400 MG TABLET PO SCH ×3 (09:01→20:07)
[2017-12-30] MEDS: DULOXETINE 30 MG CAPSULE.DR PO SCH (09:01)
[2017-12-30] MEDS: FLUTICASONE/VILANTEROL 200-25MCG/INH INH SCH (09:06)
[2017-12-30 11:21] LABS: ANION GAP 5 mmol/L (5-15); CHLORIDE 91 mmol/L (98-107)
[2017-12-30 11:55] LABS: CREATININE 0.61 mg/dL (0.55-1.02)
[2017-12-30 14:00] VITALS: BP 149/88
[2017-12-30] MEDS: SODIUM CHLORIDE 1 GM TABLET PO SCH ×2 (16:24→20:07)
[2017-12-30 19:01] VITALS: BP 138/79
[2017-12-30] MEDS: ATORVASTATIN 40 MG TABLET PO SCH (20:07)
[2017-12-31] MEDS: HEPARIN 5,000 UNITS/ML, 1ML SQ SCH ×2 (00:02→07:58)
[2017-12-31 01:12] VITALS: BP 138/84
[2017-12-31] MEDS: ALBUTEROL/IPRATROPIUM 2.5MG/0.5MG, 3 ML NPPB SCH ×2 (02:28→06:52)
[2017-12-31 04:38] LABS: ANION GAP 7 mmol/L (5-15); CALCIUM 9.1 mg/dL (8.5-10.1); CHLORIDE 95 mmol/L (98-107)
[2017-12-31 04:39] LABS: CREATININE 0.54 mg/dL (0.55-1.02)
[2017-12-31] MEDS: CARVEDILOL 6.25 MG TABLET PO SCH (05:03)
[2017-12-31] MEDS: SODIUM BICARBONATE 650 MG TABLET PO SCH ×2 (05:03→10:26)
[2017-12-31] MEDS: INSULIN LISPRO 100 UNITS/ML, PEN SQ-INSULIN SCH ×2 (07:05→10:37)
[2017-12-31] MEDS: SODIUM CHLORIDE 1 GM TABLET PO SCH (07:57)
[2017-12-31] MEDS: MAGNESIUM OXIDE 400 MG TABLET PO SCH (07:58)
[2017-12-31] MEDS: LEVOTHYROXINE 50 MCG TABLET PO SCH (07:58)
[2017-12-31] MEDS: DULOXETINE 30 MG CAPSULE.DR PO SCH (07:58)
[2017-12-31] MEDS: OMEPRAZOLE 20 MG CAPSULE.DR PO SCH (07:58)
[2017-12-31] MEDS: FLUTICASONE/VILANTEROL 200-25MCG/INH INH SCH (07:58)
[2017-12-31] MEDS: Mirabegron** (Myrbetriq**) 50 MG) HOMEMEDPO SCH (07:58)
[2017-12-31 08:04] VITALS: BP 145/81
[2017-12-31] MEDS ORDERED: SODI1TAB PO (09:37)
== END 2017-12-31 11:03 | disposition home health service (06) | DRG 746 ==
LOC: ED 23:00 → EDIP 23:05 → CCU 12-27 00:41 → 3NW 12-27 12:55
PROVIDERS: ADMIT Hospitalist; ATTEND Hospitalist
PROC: 0T9B70Z Drainage of Bladder with Drainage Device, Via Natural or Artificial Opening (ICD-10-PCS; principal; 2017-12-26)
PROC: 0U9M0ZZ Drainage of Vulva, Open Approach (ICD-10-PCS; 2017-12-27)
DX: N76.4 Abscess of vulva (principal); G93.41 Metabolic encephalopathy; E87.1 Hypo-osmolality and hyponatremia; J96.11 Chronic respiratory failure with hypoxia; N39.0 Urinary tract infection, site not specified; E03.9 Hypothyroidism, unspecified; E11.9 Type 2 diabetes mellitus without complications; E86.0 Dehydration; I10 Essential (primary) hypertension; J44.9 Chronic obstructive pulmonary disease, unspecified; K21.9 Gastro-esophageal reflux disease without esophagitis; N32.81 Overactive bladder; R32 Unspecified urinary incontinence; Z79.4 Long term (current) use of insulin; Z87.891 Personal history of nicotine dependence; Z99.81 Dependence on supplemental oxygen; Z88.0 Allergy status to penicillin; Z88.1 Allergy status to other antibiotic agents; Z88.2 Allergy status to sulfonamides
CPT/HCPCS: 36415; 56405; 70450; 71045; 80048; 80053; 81003; 82962; 83735; 83880; 84100; 84443; 84484; 85025; 87070; 87077; 87081; 87186; 87205; 93005; 94640; 96360; 96361; 96372; J1644; J3490; J7620; J1815; J3475; J7030

== ENCOUNTER → 2018-02-02 | Outpatient (CLI) | payer MEDICARE, OTHER ==
[~2018-02-02] MED LIST changes: +ATOR40TA78 PO; +CIPR500T3 PO; +ERGO500017 PO; +HYDR25TA11 PO; +IBUP-1484 PO; -IPRA3AMP NPPB; +IPRA3AMP30 NPPB; +OMEP-110 PO; +SODI1TAB PO; +TIOT18CA INH; +TRAZ-136 PO
[2018-02-02 15:46] LABS: BASOPHILS # (AUTO) 0.03 x10^3/uL (0-0.1); BASOPHILS % (AUTO) 0 % (0-1); EOSINOPHILS # (AUTO) 0.28 x10^3/uL (0-0.4); EOSINOPHILS % (AUTO) 3 % (1-7); LYMPHOCYTES # (AUTO) 1.71 x10^3/uL (1-3.4); LYMPHOCYTES % (AUTO) 16 % (22-44); MD NO; MEAN CORPUSCULAR HEMOGLOBIN 28.7 pg (27.0-34.8); MEAN CORPUSCULAR HGB CONC 33.4 g/dL (32.4-35.8); MEAN CORPUSCULAR VOLUME 85.7 fL (80-100); MEAN PLATELET VOLUME 7.7 fL (7.4-10.4); MONOCYTES # (AUTO) 0.66 x10^3/uL (0.2-0.8); MONOCYTES % (AUTO) 6 % (2-9); NEUTROPHILS # (AUTO) 7.89 x10^3/uL (1.8-6.8); NEUTROPHILS % (AUTO) 75 % (42-75); PLATELET COUNT 223 x10^3/uL (130-400); RED BLOOD COUNT 4.41 x10^6/uL (3.82-5.3); RED CELL DISTRIBUTION WIDTH 14.4 % (9.6-15.2)
[2018-02-02 15:52] LABS: ALANINE AMINOTRANSFERASE 20 U/L (12-78); ALBUMIN 3.2 g/dL (3.4-5.0); ANION GAP 10 mmol/L (5-15); CALCIUM 7.9 mg/dL (8.5-10.1); CHLORIDE 92 mmol/L (98-107)
[2018-02-02 16:03] LABS: ALKALINE PHOSPHATASE 156 U/L (45-117); BILIRUBIN,TOTAL 0.5 mg/dL (0.2-1.0); CREATININE 0.84 mg/dL (0.55-1.02); THYROID STIMULATING HORMONE 0.807 mIU/L (0.358-3.740); TOTAL PROTEIN 6.6 g/dL (6.4-8.2)
== END | disposition home or self-care (01) ==
LOC: CFH 14:33
PROVIDERS: ATTEND Nurse Practitioner Primary Care
DX: Z13.220 Encounter for screening for lipoid disorders (principal); Z12.11 Encounter for screening for malignant neoplasm of colon; Z12.39 Encounter for other screening for malignant neoplasm of breast; Z12.4 Encounter for screening for malignant neoplasm of cervix; I50.9 Heart failure, unspecified; E11.9 Type 2 diabetes mellitus without complications; D72.829 Elevated white blood cell count, unspecified; J44.9 Chronic obstructive pulmonary disease, unspecified; E03.9 Hypothyroidism, unspecified; N32.81 Overactive bladder; K21.9 Gastro-esophageal reflux disease without esophagitis; E55.9 Vitamin D deficiency, unspecified; N39.0 Urinary tract infection, site not specified; E78.2 Mixed hyperlipidemia; E87.1 Hypo-osmolality and hyponatremia; Z72.0 Tobacco use; Z99.81 Dependence on supplemental oxygen
CPT/HCPCS: 36415; 80053; 84443; 85025

== ENCOUNTER → 2018-03-08 | Outpatient (CLI) | payer MEDICARE, OTHER ==
[~2018-03-08] MED LIST changes: -AMLO10TA2 PO; +AMLO10TA6 PO
[2018-03-08 12:48] LABS: MICROSCOPIC AUTO
[2018-03-08 12:49] LABS: CULTURE INDICATED? NO
[2018-03-08 13:11] LABS: CHOL/HDL RATIO 2.4; LDL/HDL RATIO 1.1 (0.5-3.0)
== END | disposition home or self-care (01) ==
LOC: CFH 10:09
PROVIDERS: ATTEND Nurse Practitioner Primary Care
DX: Z13.220 Encounter for screening for lipoid disorders (principal); Z12.11 Encounter for screening for malignant neoplasm of colon; Z12.4 Encounter for screening for malignant neoplasm of cervix; Z12.39 Encounter for other screening for malignant neoplasm of breast; J44.9 Chronic obstructive pulmonary disease, unspecified; I50.9 Heart failure, unspecified; K21.9 Gastro-esophageal reflux disease without esophagitis; E11.9 Type 2 diabetes mellitus without complications; F06.4 Anxiety disorder due to known physiological condition; F06.31 Mood disorder due to known physiological condition with depressive features; E55.9 Vitamin D deficiency, unspecified; E78.2 Mixed hyperlipidemia; E78.1 Pure hyperglyceridemia; Z72.0 Tobacco use; Z99.81 Dependence on supplemental oxygen
CPT/HCPCS: 36415; 80061; 81001

== ENCOUNTER → 2018-05-01 | Outpatient (CLI) | payer MEDICARE, OTHER ==
[~2018-05-01] MED LIST changes: +IBUP-1222 PO; +LEVO75TA PO; +LISI-170 PO; +NITR50CA PO; +NYST1POW TP
[2018-05-01 12:44] LABS: BASOPHILS # (AUTO) 0.05 x10^3/uL (0-0.1); BASOPHILS % (AUTO) 0 % (0-1); EOSINOPHILS # (AUTO) 0.25 x10^3/uL (0-0.4); EOSINOPHILS % (AUTO) 2 % (1-7); LYMPHOCYTES # (AUTO) 2.21 x10^3/uL (1-3.4); LYMPHOCYTES % (AUTO) 16 % (22-44); MD NO; MEAN CORPUSCULAR HEMOGLOBIN 29.5 pg (27.0-34.8); MEAN CORPUSCULAR VOLUME 86.8 fL (80-100); MEAN PLATELET VOLUME 7.9 fL (7.4-10.4); MONOCYTES # (AUTO) 0.86 x10^3/uL (0.2-0.8); MONOCYTES % (AUTO) 6 % (2-9); NEUTROPHILS # (AUTO) 10.92 x10^3/uL (1.8-6.8); NEUTROPHILS % (AUTO) 76 % (42-75); PLATELET COUNT 276 x10^3/uL (130-400); RED BLOOD COUNT 5.11 x10^6/uL (3.82-5.3); RED CELL DISTRIBUTION WIDTH 12.9 % (9.6-15.2)
[2018-05-01 12:57] LABS: ALBUMIN 3.9 g/dL (3.4-5.0); ANION GAP 10 mmol/L (5-15); CALCIUM 8.8 mg/dL (8.5-10.1); CHLORIDE 85 mmol/L (98-107)
[2018-05-01 13:05] LABS: MICROSCOPIC INDICATED
[2018-05-01 13:06] LABS: CULTURE INDICATED? NO
[2018-05-01 13:11] LABS: ALANINE AMINOTRANSFERASE 33 U/L (12-78); ALKALINE PHOSPHATASE 193 U/L (45-117); BILIRUBIN,TOTAL 0.7 mg/dL (0.2-1.0); CHOL/HDL RATIO 2.9; CHOLESTEROL, TOTAL 120 mg/dL (140-239); HDL CHOL % 34 % (28-40); HDL CHOLESTEROL (DIRECT) 41 mg/dL (40-60); LDL CHOLESTEROL,CALCULATED 46 mg/dL (54-169); LDL/HDL RATIO 1.1 (0.5-3.0); TOTAL PROTEIN 7.6 g/dL (6.4-8.2); TRIGLYCERIDES 167 mg/dL (50-200); VLDL CHOLESTEROL 33 mg/dL (0-25)
[2018-05-01 14:40] LABS: HEMOGLOBIN A1C 8.7 % (4.2-6.3)
== END | disposition home or self-care (01) ==
LOC: CFH 09:25
PROVIDERS: ATTEND Nurse Practitioner Primary Care
DX: Z12.4 Encounter for screening for malignant neoplasm of cervix (principal); Z12.11 Encounter for screening for malignant neoplasm of colon; Z12.39 Encounter for other screening for malignant neoplasm of breast; J44.9 Chronic obstructive pulmonary disease, unspecified; E03.9 Hypothyroidism, unspecified; K21.9 Gastro-esophageal reflux disease without esophagitis; I50.9 Heart failure, unspecified; E11.9 Type 2 diabetes mellitus without complications; N32.81 Overactive bladder; F06.4 Anxiety disorder due to known physiological condition; F06.31 Mood disorder due to known physiological condition with depressive features; B37.2 Candidiasis of skin and nail; E55.9 Vitamin D deficiency, unspecified; R79.9 Abnormal finding of blood chemistry, unspecified; L30.9 Dermatitis, unspecified; G47.00 Insomnia, unspecified; E78.2 Mixed hyperlipidemia; R51 Headache; B37.49 Other urogenital candidiasis; E87.1 Hypo-osmolality and hyponatremia; K61.2 Anorectal abscess; D72.829 Elevated white blood cell count, unspecified
CPT/HCPCS: 36415; 80053; 80061; 81001; 83036; 84443; 85025

== ENCOUNTER 2018-05-22 10:24 | Outpatient (CLI) | payer MEDICARE, OTHER ==
[~2018-05-22 10:24] MED LIST changes: -TRAZ-136 PO; +TRAZ50TA66 PO
[2018-05-22 12:39] LABS: BASOPHILS # (AUTO) 0.05 x10^3/uL (0-0.1); BASOPHILS % (AUTO) 1 % (0-1); EOSINOPHILS # (AUTO) 0.23 x10^3/uL (0-0.4); EOSINOPHILS % (AUTO) 2 % (1-7); LYMPHOCYTES # (AUTO) 1.78 x10^3/uL (1-3.4); LYMPHOCYTES % (AUTO) 16 % (22-44); MD NO; MEAN CORPUSCULAR HEMOGLOBIN 28.9 pg (27.0-34.8); MEAN CORPUSCULAR HGB CONC 33.4 g/dL (32.4-35.8); MEAN CORPUSCULAR VOLUME 86.3 fL (80-100); MEAN PLATELET VOLUME 7.6 fL (7.4-10.4); MONOCYTES # (AUTO) 0.62 x10^3/uL (0.2-0.8); MONOCYTES % (AUTO) 6 % (2-9); NEUTROPHILS # (AUTO) 8.52 x10^3/uL (1.8-6.8); NEUTROPHILS % (AUTO) 76 % (42-75); PLATELET COUNT 299 x10^3/uL (130-400); RED BLOOD COUNT 4.81 x10^6/uL (3.82-5.3); RED CELL DISTRIBUTION WIDTH 13.3 % (9.6-15.2)
[2018-05-22 15:49] LABS: ALANINE AMINOTRANSFERASE 29 U/L (12-78); ALBUMIN 3.5 g/dL (3.4-5.0); ANION GAP 8 mmol/L (5-15); CALCIUM 8.9 mg/dL (8.5-10.1); CHLORIDE 90 mmol/L (98-107); CREATININE 0.76 mg/dL (0.55-1.02)
[2018-05-22 15:52] LABS: ALKALINE PHOSPHATASE 214 U/L (45-117); BILIRUBIN,TOTAL 0.5 mg/dL (0.2-1.0); TOTAL PROTEIN 7.4 g/dL (6.4-8.2)
[2018-05-23 16:07] LABS: CULTURE INDICATED? YES; MICROSCOPIC INDICATED
== END 2018-06-02 11:06 | disposition home or self-care (01) ==
LOC: CFH 10:24
PROVIDERS: ATTEND Nurse Practitioner Primary Care
DX: Z13.220 Encounter for screening for lipoid disorders (principal); Z12.4 Encounter for screening for malignant neoplasm of cervix; Z12.39 Encounter for other screening for malignant neoplasm of breast; Z12.11 Encounter for screening for malignant neoplasm of colon; R53.83 Other fatigue; J44.9 Chronic obstructive pulmonary disease, unspecified; I50.9 Heart failure, unspecified; E03.9 Hypothyroidism, unspecified; K21.9 Gastro-esophageal reflux disease without esophagitis; E11.9 Type 2 diabetes mellitus without complications; N32.81 Overactive bladder; F06.4 Anxiety disorder due to known physiological condition; F06.31 Mood disorder due to known physiological condition with depressive features; B37.2 Candidiasis of skin and nail; E55.9 Vitamin D deficiency, unspecified; N39.0 Urinary tract infection, site not specified; R79.9 Abnormal finding of blood chemistry, unspecified; L30.9 Dermatitis, unspecified; G47.00 Insomnia, unspecified; K61.2 Anorectal abscess; D72.829 Elevated white blood cell count, unspecified; L89.892 Pressure ulcer of other site, stage 2; K64.9 Unspecified hemorrhoids; R05 Cough; Z99.81 Dependence on supplemental oxygen
CPT/HCPCS: 36415; 80053; 81001; 83735; 85025; 87086

== ENCOUNTER → 2018-07-14 | Outpatient (CLI) | payer MEDICARE, OTHER ==
[2018-07-14 12:31] LABS: BASOPHILS # (AUTO) 0.04 x10^3/uL (0-0.1); BASOPHILS % (AUTO) 0 % (0-1); EOSINOPHILS # (AUTO) 0.36 x10^3/uL (0-0.4); EOSINOPHILS % (AUTO) 4 % (1-7); LYMPHOCYTES # (AUTO) 2.36 x10^3/uL (1-3.4); LYMPHOCYTES % (AUTO) 25 % (22-44); MD NO; MEAN CORPUSCULAR HEMOGLOBIN 29.8 pg (27.0-34.8); MEAN CORPUSCULAR HGB CONC 33.8 g/dL (32.4-35.8); MEAN CORPUSCULAR VOLUME 88.2 fL (80-100); MEAN PLATELET VOLUME 8.3 fL (7.4-10.4); MONOCYTES # (AUTO) 0.66 x10^3/uL (0.2-0.8); MONOCYTES % (AUTO) 7 % (2-9); NEUTROPHILS # (AUTO) 6.16 x10^3/uL (1.8-6.8); NEUTROPHILS % (AUTO) 64 % (42-75); PLATELET COUNT 233 x10^3/uL (130-400); RED CELL DISTRIBUTION WIDTH 13.3 % (9.6-15.2)
[2018-07-14 12:33] LABS: MICROSCOPIC AUTO
[2018-07-14 12:35] LABS: CULTURE INDICATED? YES
[2018-07-14 13:03] LABS: HEMOGLOBIN A1C 10.1 % (4.2-6.3)
[2018-07-14 13:09] LABS: CHLORIDE 94 mmol/L (98-107)
[2018-07-14 13:20] LABS: ALANINE AMINOTRANSFERASE 25 U/L (12-78); ALBUMIN 3.9 g/dL (3.4-5.0); ALKALINE PHOSPHATASE 283 U/L (45-117); ANION GAP 7 mmol/L (5-15); BILIRUBIN,TOTAL 0.6 mg/dL (0.2-1.0); CALCIUM 8.6 mg/dL (8.5-10.1); CREATININE 0.84 mg/dL (0.55-1.02); TOTAL PROTEIN 7.4 g/dL (6.4-8.2)
== END | disposition home or self-care (01) ==
LOC: CFH 09:48
PROVIDERS: ATTEND Nurse Practitioner Primary Care
DX: Z12.39 Encounter for other screening for malignant neoplasm of breast (principal); Z12.4 Encounter for screening for malignant neoplasm of cervix; Z12.11 Encounter for screening for malignant neoplasm of colon; Z13.220 Encounter for screening for lipoid disorders; J44.9 Chronic obstructive pulmonary disease, unspecified; L89.892 Pressure ulcer of other site, stage 2; I50.9 Heart failure, unspecified; E03.9 Hypothyroidism, unspecified; K21.9 Gastro-esophageal reflux disease without esophagitis; E11.9 Type 2 diabetes mellitus without complications; N32.81 Overactive bladder; F06.4 Anxiety disorder due to known physiological condition; F06.31 Mood disorder due to known physiological condition with depressive features; B37.2 Candidiasis of skin and nail; E55.9 Vitamin D deficiency, unspecified; R79.9 Abnormal finding of blood chemistry, unspecified; L30.9 Dermatitis, unspecified; G47.00 Insomnia, unspecified; R51 Headache; E78.2 Mixed hyperlipidemia; B37.49 Other urogenital candidiasis; E87.1 Hypo-osmolality and hyponatremia; K61.2 Anorectal abscess; D72.829 Elevated white blood cell count, unspecified; K64.9 Unspecified hemorrhoids; R53.83 Other fatigue; Z99.81 Dependence on supplemental oxygen; Z72.0 Tobacco use
CPT/HCPCS: 36415; 80053; 81001; 83036; 85025; 87086

== ENCOUNTER 2018-12-06 17:50 | Inpatient (IN) | payer MEDICARE, OTHER ==
[~2018-12-06] VITALS: Ht 170.2 cm; Wt 97.8 kg
[~2018-12-06 17:50] MED LIST changes: -AMLO10TA6 PO; +AMLO10TA8 PO
--- NOTE | 2018-12-06 18:06 | NUR ---
PT PLACED ON HEART MONITOR, BP CUFF, PULSE OX, AND HOME OXYGEN AT 4LITERS. PT DENIES CP, SOB IMPROVED AT THIS TIME. VSS. EKG COMPLETED AT BS. CALL LIGHT WITHIN REACH.
[2018-12-06] MEDS ORDERED: methylPREDNISolone SOD SUCC 125 MG/2 ML ONE (18:17)
--- NOTE | 2018-12-06 18:25 | NUR ---
SOLUMEDROL GIVEN IVP PER ERP ORDER. LABS DRAWN, CXR COMPLETED. CALL LIGHT WITHIN REACH.
[2018-12-06] MEDS ORDERED: ALBUTEROL/IPRATROPIUM 2.5MG/0.5MG, 3 ML NPPB ONE (18:30)
[2018-12-06] MEDS ORDERED: SODIUM CHLORIDE FLUSH 10ML SYR IVF ONE (18:30)
[2018-12-06] MEDS ORDERED: methylPREDNISolone SOD SUCC 125 MG/2 ML IVP ONE (18:30)
[2018-12-06 18:34] LABS: BASOPHILS # (AUTO) 0.03 x10^3/uL (0-0.1); BASOPHILS % (AUTO) 0 % (0-1); EOSINOPHILS # (AUTO) 0.33 x10^3/uL (0-0.4); EOSINOPHILS % (AUTO) 2 % (1-7); LYMPHOCYTES # (AUTO) 1.96 x10^3/uL (1-3.4); LYMPHOCYTES % (AUTO) 14 % (22-44); MD NO; MEAN CORPUSCULAR HEMOGLOBIN 29.9 pg (27.0-34.8); MEAN CORPUSCULAR HGB CONC 32.9 g/dL (32.4-35.8); MEAN CORPUSCULAR VOLUME 90.8 fL (80-100); MEAN PLATELET VOLUME 6.7 fL (7.4-10.4); MONOCYTES # (AUTO) 0.71 x10^3/uL (0.2-0.8); MONOCYTES % (AUTO) 5 % (2-9); NEUTROPHILS # (AUTO) 11.01 x10^3/uL (1.8-6.8); NEUTROPHILS % (AUTO) 79 % (42-75); PLATELET COUNT 301 x10^3/uL (130-400); RED BLOOD COUNT 4.56 x10^6/uL (3.82-5.3); RED CELL DISTRIBUTION WIDTH 13.9 % (9.6-15.2)
[2018-12-06 18:47] LABS: ALBUMIN 3.5 g/dL (3.4-5.0); CALCIUM 8.3 mg/dL (8.5-10.1); CREATININE 0.58 mg/dL (0.55-1.02)
[2018-12-06 18:50] LABS: TROPONIN I 0.034 ng/mL (0.000-0.045)
[2018-12-06 18:55] LABS: ANION GAP 7 mmol/L (5-15); CHLORIDE 83 mmol/L (98-107)
[2018-12-06] MEDS ORDERED: SODIUM CHLORIDE 0.9% 1,000 ML IV ONE ×2 (19:05→19:43)
[2018-12-06] MEDS ORDERED: SODIUM CHLORIDE FLUSH 10ML SYR IVF PRN (20:00)
--- NOTE | 2018-12-06 20:15 | NUR ---
PT CONTINUALLY INCONTINENT, PT'S DIAPER CHANGED THEN PLACED ON BEDPAN PER REQUEST. PT STILL UNABLE TO HOLD BLADDER. PURWICK PLACED, PT REPOSITIONED IN BED. [facility] IN TO SEE PT. ANTIBIOTICS ORDERED, NO BC AT THIS TIME. [facility] CONSULTED, BC ORDERED-WILL AWAIT BC X 2 PRIOR TO ANTIBIOTICS BEING INFUSED.
[2018-12-06] MEDS ORDERED: CEFTRIAXONE PMX 1GM/50ML 50 ML ONE (20:23)
[2018-12-06] MEDS ORDERED: BISACODYL 10 MG SUPP PR PRN (20:30)
[2018-12-06] MEDS ORDERED: GUAIFENESIN/DM 200-20MG, 10ML UDC PO PRN (20:30)
[2018-12-06] MEDS ORDERED: POLYETHYLENE GLYCOL 17 GM PACKET PO PRN (20:30)
[2018-12-06] MEDS ORDERED: DULA1.5P INJ (20:47)
[2018-12-06] MEDS ORDERED: LISI-170 PO (20:47)
[2018-12-06] MEDS ORDERED: INSU100V8 SQ (20:47)
[2018-12-06] MEDS ORDERED: IPRA3AMP30 NEB (20:47)
[2018-12-06] MEDS ORDERED: POTA20PA25 PO (20:47)
[2018-12-06] MEDS ORDERED: LEVO50TA5 PO (20:47)
[2018-12-06] MEDS ORDERED: LORA-247 PO (20:47)
[2018-12-06] MEDS ORDERED: MIRA50TA PO (20:47)
[2018-12-06] MEDS ORDERED: NITR50CA PO (20:47)
[2018-12-06] MEDS ORDERED: SITA100T PO (20:47)
[2018-12-06] MEDS ORDERED: SODI1TAB PO (20:47)
[2018-12-06] MEDS ORDERED: OMEP-110 PO (20:47)
[2018-12-06 20:49] LABS: HEMOGLOBIN A1C 7.3 % (4.2-6.3)
[2018-12-06] MEDS ORDERED: TEMPLATE NON-FORMULARY MED. (Insulin Aspart (Novolog) 0 UNITS) SQ-INSULIN SCH (21:00)
[2018-12-06] MEDS ORDERED: SODIUM CHLORIDE 1 GM TABLET PO SCH (21:00)
[2018-12-06] MEDS ORDERED: SODIUM BICARBONATE 650 MG TABLET PO SCH (21:00)
[2018-12-06] MEDS ORDERED: CEPH-376 PO (21:11)
[2018-12-06] MEDS ORDERED: UMEC62.5 INH (21:11)
[2018-12-06] MEDS ORDERED: TRIAMCINOLONE (21:11)
[2018-12-06] MEDS ORDERED: DULO30CA2 PO (21:11)
[2018-12-06] MEDS ORDERED: FLUT1AER INH (21:11)
--- NOTE | 2018-12-06 21:15 | NUR ---
LAB CALLED, UNABLE TO DRAW BC. PER THROUGHPUT, PT TO BE TRANSPORTED TO FLOOR NOW. [facility] SENT WITH PT-NOT TO INFUSE UNTIL AFTER BC X 2 DRAWN ON FLOOR.
[2018-12-06] MEDS: BUDESONIDE 0.5 MG/2 ML INHA NPPB SCH (21:30)
[2018-12-06 21:42] VITALS: BP 174/96
[2018-12-06] MEDS: HEPARIN 5,000 UNITS/ML, 1ML SQ SCH (22:42)
[2018-12-06] MEDS: NICOTINE 7 MG/24 HR PATCH.TD24 TD SCH (22:42)
[2018-12-06] MEDS: POTASSIUM CHLORIDE 20 MEQ TAB.ER.PRT PO SCH (22:43)
[2018-12-06] MEDS: CARVEDILOL 6.25 MG TABLET PO SCH (22:43)
[2018-12-06] MEDS: ATORVASTATIN 40 MG TABLET PO SCH (22:43)
[2018-12-06] MEDS: CEFTRIAXONE PMX 1GM/50ML 50 ML IV SCH (22:43)
[2018-12-06] MEDS: SODIUM CHLORIDE FLUSH 10ML SYR IVF SCH (22:44)
[2018-12-06] MEDS: INSULIN GLARGINE 100 UNITS/ML, PEN SQ-INSULIN SCH (23:19)
[2018-12-06] MEDS: ONDANSETRON ODT 4 MG PO PRN (23:20)
[2018-12-06] MEDS: INSULIN LISPRO 100 UNITS/ML, PEN MEDIUM DOSE SS SQ-INSULIN SCH (23:20)
[2018-12-06] MEDS: ACETAMINOPHEN 325 MG TABLET PO PRN (23:38)
[2018-12-06 23:59] LABS: MICROSCOPIC AUTO
[2018-12-07] MEDS ORDERED: SODIUM CHLORIDE 0.9% 1,000 ML IV SCH
[2018-12-07 00:01] LABS: CULTURE INDICATED? YES
[2018-12-07 00:02] LABS: CHLORIDE,URINE RANDOM 33 mmol/L; POTASSIUM,URINE RANDOM 18 mmol/L; SODIUM,URINE RANDOM 38 mmol/L
[2018-12-07] MEDS: AZITHROMYCIN 500 MG in SODIUM CHLORIDE 0.9% 250 ML IV SCH ×2 (00:20→20:51)
[2018-12-07 01:01] VITALS: BP 151/91
[2018-12-07 01:28] LABS: OSMOLALITY,URINE 136 mOsm/kg (500-850)
[2018-12-07 02:22] LABS: MEAN CORPUSCULAR HEMOGLOBIN 29.8 pg (27.0-34.8); MEAN CORPUSCULAR HGB CONC 32.9 g/dL (32.4-35.8); MEAN CORPUSCULAR VOLUME 90.5 fL (80-100); PLATELET COUNT 268 x10^3/uL (130-400); RED BLOOD COUNT 4.72 x10^6/uL (3.82-5.3); RED CELL DISTRIBUTION WIDTH 14.1 % (9.6-15.2)
[2018-12-07 03:02] LABS: BASOPHILS % (AUTO) 0 % (0-1); EOSINOPHILS % (AUTO) 0 % (1-7); LYMPHOCYTES # (AUTO) 0.59 x10^3/uL (1-3.4); LYMPHOCYTES % (AUTO) 7 % (22-44); MD SCAN; MONOCYTES # (AUTO) 0.04 x10^3/uL (0.2-0.8); MONOCYTES % (AUTO) 1 % (2-9); NEUTROPHILS # (AUTO) 8.19 x10^3/uL (1.8-6.8); NEUTROPHILS % (AUTO) 93 % (42-75)
[2018-12-07] MEDS ORDERED: SODIUM CHLORIDE 3% 500 ML IV PRN (05:30)
[2018-12-07] MEDS: HEPARIN 5,000 UNITS/ML, 1ML SQ SCH ×3 (05:44→20:53)
[2018-12-07] MEDS: CARVEDILOL 6.25 MG TABLET PO SCH ×2 (05:44→17:20)
[2018-12-07] MEDS: LEVOTHYROXINE 50 MCG TABLET PO SCH (05:44)
[2018-12-07] MEDS: OMEPRAZOLE 20 MG CAPSULE.DR PO SCH (05:44)
[2018-12-07] MEDS: ACETAMINOPHEN 325 MG TABLET PO PRN ×3 (06:14→23:04)
[2018-12-07] MEDS: BUDESONIDE 0.5 MG/2 ML INHA NPPB SCH ×2 (06:30→20:26)
[2018-12-07] MEDS: ALBUTEROL/IPRATROPIUM 2.5MG/0.5MG, 3 ML NPPB SCH ×4 (06:30→20:00)
[2018-12-07 07:14] LABS: CHLORIDE 87 mmol/L (98-107)
[2018-12-07 07:22] VITALS: BP 146/83
[2018-12-07 07:30] LABS: ALANINE AMINOTRANSFERASE 23 U/L (12-78); ALBUMIN 3.3 g/dL (3.4-5.0); ALKALINE PHOSPHATASE 127 U/L (45-117); ANION GAP 7 mmol/L (5-15); BILIRUBIN,TOTAL 0.5 mg/dL (0.2-1.0); CALCIUM 8.5 mg/dL (8.5-10.1); CREATININE 0.56 mg/dL (0.55-1.02)
[2018-12-07] MEDS ORDERED: TEMPLATE NON-FORMULARY MED. (Tiotropium Bromide** (Spiriva**) 18 MCG) INH SCH (09:00)
[2018-12-07] MEDS ORDERED: ERGOCALCIFEROL 50,000 UNIT CAPSULE PO SCH (09:00)
[2018-12-07] MEDS: POTASSIUM CHLORIDE 20 MEQ TAB.ER.PRT PO SCH ×2 (09:32→20:53)
[2018-12-07] MEDS: INSULIN LISPRO 100 UNITS/ML, PEN MEDIUM DOSE SS SQ-INSULIN SCH ×4 (09:32→20:54)
[2018-12-07] MEDS: SENNA/DOCUSATE TABLET PO SCH (09:32)
[2018-12-07] MEDS: LISINOPRIL 20 MG TABLET PO SCH (09:33)
[2018-12-07] MEDS: LINAGLIPTIN 5 MG TAB PO SCH (09:33)
[2018-12-07] MEDS: MAGNESIUM OXIDE 400 MG TABLET PO SCH (09:34)
[2018-12-07] MEDS: DULOXETINE 30 MG CAPSULE.DR PO SCH (09:34)
[2018-12-07] MEDS: SODIUM CHLORIDE FLUSH 10ML SYR IVF SCH ×2 (09:35→20:54)
[2018-12-07] MEDS: (Mirabegron** (Myrbetriq**) 50 MG) HOMEMEDPO SCH (09:35)
[2018-12-07] MEDS ORDERED: SODI1TAB PO (13:44)
[2018-12-07] MEDS ORDERED: TIZA4CAP PO (13:44)
[2018-12-07] MEDS ORDERED: LEVO50TA5 PO (13:44)
[2018-12-07] MEDS ORDERED: ALBU90AE INH (13:44)
[2018-12-07] MEDS ORDERED: INSU100I13 SQ-INSULIN (13:44)
[2018-12-07] MEDS ORDERED: ACET325T14 PO (13:44)
[2018-12-07] MEDS ORDERED: ONDA4TAB13 SL (13:44)
[2018-12-07 14:04] VITALS: BP 166/88
[2018-12-07] MEDS: CEFTRIAXONE PMX 1GM/50ML 50 ML IV SCH (20:51)
[2018-12-07] MEDS: INSULIN GLARGINE 100 UNITS/ML, PEN SQ-INSULIN SCH (20:52)
[2018-12-07] MEDS: GUAIFENESIN ER 600 MG TABLET PO SCH (20:52)
[2018-12-07] MEDS: ATORVASTATIN 40 MG TABLET PO SCH (20:53)
[2018-12-07] MEDS: NICOTINE 7 MG/24 HR PATCH.TD24 TD SCH (20:53)
[2018-12-07 21:11] VITALS: BP 158/77
[2018-12-08 01:04] VITALS: BP 145/78
[2018-12-08] MEDS: OMEPRAZOLE 20 MG CAPSULE.DR PO SCH (05:08)
[2018-12-08] MEDS: CARVEDILOL 6.25 MG TABLET PO SCH ×2 (05:08→18:14)
[2018-12-08] MEDS: LEVOTHYROXINE 50 MCG TABLET PO SCH (05:08)
[2018-12-08] MEDS: HEPARIN 5,000 UNITS/ML, 1ML SQ SCH ×3 (05:08→20:45)
[2018-12-08] MEDS: ACETAMINOPHEN 325 MG TABLET PO PRN (05:14)
[2018-12-08 06:01] LABS: BASOPHILS # (AUTO) 0.07 x10^3/uL (0-0.1); BASOPHILS % (AUTO) 1 % (0-1); EOSINOPHILS # (AUTO) 0.24 x10^3/uL (0-0.4); EOSINOPHILS % (AUTO) 2 % (1-7); LYMPHOCYTES % (AUTO) 17 % (22-44); MD NO; MEAN CORPUSCULAR HEMOGLOBIN 29.9 pg (27.0-34.8); MEAN CORPUSCULAR HGB CONC 33.3 g/dL (32.4-35.8); MEAN CORPUSCULAR VOLUME 89.6 fL (80-100); MEAN PLATELET VOLUME 7.4 fL (7.4-10.4); MONOCYTES # (AUTO) 0.85 x10^3/uL (0.2-0.8); MONOCYTES % (AUTO) 6 % (2-9); NEUTROPHILS # (AUTO) 10.42 x10^3/uL (1.8-6.8); NEUTROPHILS % (AUTO) 75 % (42-75); PLATELET COUNT 266 x10^3/uL (130-400); RED BLOOD COUNT 4.72 x10^6/uL (3.82-5.3); RED CELL DISTRIBUTION WIDTH 14.3 % (9.6-15.2)
[2018-12-08 06:11] LABS: ANION GAP 6 mmol/L (5-15); CALCIUM 8.3 mg/dL (8.5-10.1); CHLORIDE 87 mmol/L (98-107)
[2018-12-08] MEDS: ALBUTEROL/IPRATROPIUM 2.5MG/0.5MG, 3 ML NPPB SCH ×4 (07:00→20:00)
[2018-12-08] MEDS: INSULIN LISPRO 100 UNITS/ML, PEN MEDIUM DOSE SS SQ-INSULIN SCH ×4 (07:00→21:00)
[2018-12-08] MEDS: BUDESONIDE 0.5 MG/2 ML INHA NPPB SCH ×2 (07:00→12:00)
[2018-12-08] MEDS ORDERED: OMNIPAQUE 350 MG/ML, 75ML BOTTLE ONE (08:43)
[2018-12-08] MEDS: (Mirabegron** (Myrbetriq**) 50 MG) HOMEMEDPO SCH (09:00)
[2018-12-08] MEDS: SENNA/DOCUSATE TABLET PO SCH (09:00)
[2018-12-08 09:49] VITALS: BP 167/95
[2018-12-08] MEDS: DULOXETINE 30 MG CAPSULE.DR PO SCH (09:53)
[2018-12-08] MEDS: POTASSIUM CHLORIDE 20 MEQ TAB.ER.PRT PO SCH ×2 (09:53→20:44)
[2018-12-08] MEDS: GUAIFENESIN ER 600 MG TABLET PO SCH ×2 (09:54→20:44)
[2018-12-08] MEDS: LINAGLIPTIN 5 MG TAB PO SCH (09:54)
[2018-12-08] MEDS: LISINOPRIL 20 MG TABLET PO SCH (09:54)
[2018-12-08] MEDS: MAGNESIUM OXIDE 400 MG TABLET PO SCH (09:54)
[2018-12-08] MEDS: SODIUM CHLORIDE FLUSH 10ML SYR IVF SCH ×2 (09:55→20:44)
[2018-12-08 15:30] VITALS: BP 155/91
[2018-12-08] MEDS: FUROSEMIDE 20 MG/2 ML IV SCH (15:53)
[2018-12-08 20:35] VITALS: BP 143/82
[2018-12-08] MEDS: CEFTRIAXONE PMX 1GM/50ML 50 ML IV SCH (20:44)
[2018-12-08] MEDS: ATORVASTATIN 40 MG TABLET PO SCH (20:44)
[2018-12-08] MEDS: INSULIN GLARGINE 100 UNITS/ML, PEN SQ-INSULIN SCH (21:06)
[2018-12-08] MEDS: NICOTINE 7 MG/24 HR PATCH.TD24 TD SCH (21:08)
[2018-12-09 01:24] VITALS: BP 148/83
[2018-12-09 05:13] LABS: ALBUMIN 3.5 g/dL (3.4-5.0); ANION GAP 5 mmol/L (5-15); CHLORIDE 87 mmol/L (98-107); CREATININE 0.74 mg/dL (0.55-1.02)
[2018-12-09 05:25] LABS: BASOPHILS # (AUTO) 0.04 x10^3/uL (0-0.1); BASOPHILS % (AUTO) 0 % (0-1); EOSINOPHILS # (AUTO) 0.25 x10^3/uL (0-0.4); EOSINOPHILS % (AUTO) 2 % (1-7); LYMPHOCYTES # (AUTO) 1.91 x10^3/uL (1-3.4); LYMPHOCYTES % (AUTO) 13 % (22-44); MD NO; MEAN CORPUSCULAR HGB CONC 33.2 g/dL (32.4-35.8); MEAN CORPUSCULAR VOLUME 90.3 fL (80-100); MEAN PLATELET VOLUME 7.2 fL (7.4-10.4); MONOCYTES # (AUTO) 0.75 x10^3/uL (0.2-0.8); MONOCYTES % (AUTO) 5 % (2-9); NEUTROPHILS # (AUTO) 11.42 x10^3/uL (1.8-6.8); NEUTROPHILS % (AUTO) 79 % (42-75); PLATELET COUNT 272 x10^3/uL (130-400); RED BLOOD COUNT 4.97 x10^6/uL (3.82-5.3); RED CELL DISTRIBUTION WIDTH 14.2 % (9.6-15.2)
[2018-12-09] MEDS: HEPARIN 5,000 UNITS/ML, 1ML SQ SCH ×3 (05:37→20:04)
[2018-12-09] MEDS: LEVOTHYROXINE 50 MCG TABLET PO SCH (05:37)
[2018-12-09] MEDS: OMEPRAZOLE 20 MG CAPSULE.DR PO SCH (05:37)
[2018-12-09] MEDS: CARVEDILOL 6.25 MG TABLET PO SCH ×2 (05:37→18:06)
[2018-12-09] MEDS: INSULIN LISPRO 100 UNITS/ML, PEN MEDIUM DOSE SS SQ-INSULIN SCH ×4 (07:00→20:03)
[2018-12-09] MEDS: FUROSEMIDE 20 MG/2 ML IV SCH (07:56)
[2018-12-09] MEDS: DULOXETINE 30 MG CAPSULE.DR PO SCH (07:57)
[2018-12-09] MEDS: SENNA/DOCUSATE TABLET PO SCH (07:57)
[2018-12-09] MEDS: LINAGLIPTIN 5 MG TAB PO SCH (07:57)
[2018-12-09] MEDS: GUAIFENESIN ER 600 MG TABLET PO SCH ×2 (07:58→20:05)
[2018-12-09] MEDS: LISINOPRIL 20 MG TABLET PO SCH (07:58)
[2018-12-09] MEDS: POTASSIUM CHLORIDE 20 MEQ TAB.ER.PRT PO SCH (07:58)
[2018-12-09] MEDS: SODIUM CHLORIDE FLUSH 10ML SYR IVF SCH ×2 (07:59→20:05)
[2018-12-09 08:00] VITALS: BP 136/78
[2018-12-09] MEDS: MAGNESIUM OXIDE 400 MG TABLET PO SCH (08:02)
[2018-12-09] MEDS: ALBUTEROL/IPRATROPIUM 2.5MG/0.5MG, 3 ML NPPB SCH ×4 (08:10→20:00)
[2018-12-09] MEDS: BUDESONIDE 0.5 MG/2 ML INHA NPPB SCH ×2 (08:10→20:12)
[2018-12-09] MEDS: (Mirabegron** (Myrbetriq**) 50 MG) HOMEMEDPO SCH (08:30)
[2018-12-09] MEDS: MEROPENEM 1 GM in SODIUM CHLORIDE 0.9% 100 ML IV SCH ×2 (09:13→16:22)
[2018-12-09] MEDS ORDERED: SODIUM CHLORIDE 0.9% 100 ML IV SCH (11:00)
[2018-12-09] MEDS: SODIUM CHLORIDE 0.9% 1,000 ML IV SCH ×2 (11:07→20:02)
[2018-12-09 13:55] VITALS: BP 131/81
[2018-12-09] MEDS: ONDANSETRON ODT 4 MG PO PRN (16:22)
[2018-12-09 16:28] LABS: ANION GAP 8 mmol/L (5-15); CALCIUM 8.6 mg/dL (8.5-10.1); CHLORIDE 89 mmol/L (98-107); CREATININE 0.79 mg/dL (0.55-1.02)
[2018-12-09] MEDS: INSULIN GLARGINE 100 UNITS/ML, PEN SQ-INSULIN SCH (20:04)
[2018-12-09] MEDS: NICOTINE 7 MG/24 HR PATCH.TD24 TD SCH (20:05)
[2018-12-09] MEDS: ATORVASTATIN 40 MG TABLET PO SCH (20:05)
[2018-12-09 20:23] VITALS: BP 118/76
[2018-12-09 22:51] LABS: ANION GAP 5 mmol/L (5-15); CHLORIDE 92 mmol/L (98-107); CREATININE 0.77 mg/dL (0.55-1.02)
[2018-12-10] MEDS: MEROPENEM 1 GM in SODIUM CHLORIDE 0.9% 100 ML IV SCH ×3 (00:30→17:50)
[2018-12-10 00:44] VITALS: BP 130/65
[2018-12-10] MEDS: HEPARIN 5,000 UNITS/ML, 1ML SQ SCH ×3 (04:19→21:46)
[2018-12-10] MEDS: SODIUM CHLORIDE 0.9% 1,000 ML IV SCH ×3 (04:19→23:55)
[2018-12-10] MEDS: OMEPRAZOLE 20 MG CAPSULE.DR PO SCH (05:33)
[2018-12-10] MEDS: LEVOTHYROXINE 50 MCG TABLET PO SCH (05:33)
[2018-12-10] MEDS: CARVEDILOL 6.25 MG TABLET PO SCH ×2 (05:34→17:50)
[2018-12-10 05:43] LABS: BASOPHILS # (AUTO) 0.04 x10^3/uL (0-0.1); BASOPHILS % (AUTO) 0 % (0-1); EOSINOPHILS # (AUTO) 0.05 x10^3/uL (0-0.4); EOSINOPHILS % (AUTO) 0 % (1-7); LYMPHOCYTES # (AUTO) 1.56 x10^3/uL (1-3.4); LYMPHOCYTES % (AUTO) 12 % (22-44); MD NO; MEAN CORPUSCULAR HGB CONC 32.9 g/dL (32.4-35.8); MEAN CORPUSCULAR VOLUME 91.1 fL (80-100); MEAN PLATELET VOLUME 6.9 fL (7.4-10.4); MONOCYTES # (AUTO) 0.74 x10^3/uL (0.2-0.8); MONOCYTES % (AUTO) 6 % (2-9); NEUTROPHILS # (AUTO) 10.56 x10^3/uL (1.8-6.8); NEUTROPHILS % (AUTO) 82 % (42-75); PLATELET COUNT 268 x10^3/uL (130-400); RED BLOOD COUNT 4.71 x10^6/uL (3.82-5.3); RED CELL DISTRIBUTION WIDTH 14.4 % (9.6-15.2)
[2018-12-10] MEDS: INSULIN LISPRO 100 UNITS/ML, PEN MEDIUM DOSE SS SQ-INSULIN SCH ×4 (07:00→21:47)
[2018-12-10 08:00] VITALS: BP 126/78
[2018-12-10] MEDS: BUDESONIDE 0.5 MG/2 ML INHA NPPB SCH ×2 (08:00→19:18)
[2018-12-10] MEDS: ALBUTEROL/IPRATROPIUM 2.5MG/0.5MG, 3 ML NPPB SCH ×4 (08:00→19:18)
[2018-12-10 08:01] LABS: ANION GAP 4 mmol/L (5-15); CALCIUM 8.2 mg/dL (8.5-10.1); CHLORIDE 94 mmol/L (98-107); CREATININE 0.74 mg/dL (0.55-1.02)
[2018-12-10] MEDS: GUAIFENESIN ER 600 MG TABLET PO SCH ×2 (08:01→21:46)
[2018-12-10] MEDS: SENNA/DOCUSATE TABLET PO SCH (08:01)
[2018-12-10] MEDS: SODIUM CHLORIDE FLUSH 10ML SYR IVF SCH ×2 (08:02→21:47)
[2018-12-10] MEDS: (Mirabegron** (Myrbetriq**) 50 MG) HOMEMEDPO SCH (09:00)
[2018-12-10 13:11] VITALS: BP 146/80
[2018-12-10 16:09] LABS: ALBUMIN 3.2 g/dL (3.4-5.0); ANION GAP 4 mmol/L (5-15); CALCIUM 8.3 mg/dL (8.5-10.1); CHLORIDE 91 mmol/L (98-107); CREATININE 0.69 mg/dL (0.55-1.02)
[2018-12-10 20:15] VITALS: BP 137/79
[2018-12-10] MEDS: ATORVASTATIN 40 MG TABLET PO SCH (21:46)
[2018-12-10] MEDS: INSULIN GLARGINE 100 UNITS/ML, PEN SQ-INSULIN SCH (21:47)
[2018-12-10] MEDS: NICOTINE 7 MG/24 HR PATCH.TD24 TD SCH (21:47)
[2018-12-11] MEDS: ACETAMINOPHEN 325 MG TABLET PO PRN (00:05)
[2018-12-11 00:44] VITALS: BP 138/78
[2018-12-11] MEDS: MEROPENEM 1 GM in SODIUM CHLORIDE 0.9% 100 ML IV SCH ×3 (01:41→17:34)
[2018-12-11] MEDS: HEPARIN 5,000 UNITS/ML, 1ML SQ SCH ×3 (05:16→21:43)
[2018-12-11] MEDS: LEVOTHYROXINE 50 MCG TABLET PO SCH (05:17)
[2018-12-11] MEDS: OMEPRAZOLE 20 MG CAPSULE.DR PO SCH (05:17)
[2018-12-11] MEDS: CARVEDILOL 6.25 MG TABLET PO SCH ×2 (05:17→17:34)
[2018-12-11 05:22] LABS: BASOPHILS # (AUTO) 0.08 x10^3/uL (0-0.1); BASOPHILS % (AUTO) 1 % (0-1); EOSINOPHILS # (AUTO) 0.31 x10^3/uL (0-0.4); EOSINOPHILS % (AUTO) 3 % (1-7); LYMPHOCYTES # (AUTO) 2.55 x10^3/uL (1-3.4); LYMPHOCYTES % (AUTO) 20 % (22-44); MD NO; MEAN CORPUSCULAR HEMOGLOBIN 30.5 pg (27.0-34.8); MEAN CORPUSCULAR HGB CONC 33.4 g/dL (32.4-35.8); MEAN CORPUSCULAR VOLUME 91.4 fL (80-100); MEAN PLATELET VOLUME 7.1 fL (7.4-10.4); MONOCYTES # (AUTO) 0.94 x10^3/uL (0.2-0.8); MONOCYTES % (AUTO) 7 % (2-9); NEUTROPHILS # (AUTO) 8.77 x10^3/uL (1.8-6.8); NEUTROPHILS % (AUTO) 69 % (42-75); PLATELET COUNT 252 x10^3/uL (130-400); RED CELL DISTRIBUTION WIDTH 14.4 % (9.6-15.2)
[2018-12-11 05:31] LABS: ALBUMIN 2.9 g/dL (3.4-5.0); ANION GAP 5 mmol/L (5-15); CALCIUM 8.1 mg/dL (8.5-10.1); CHLORIDE 97 mmol/L (98-107)
[2018-12-11 05:32] LABS: CREATININE 0.59 mg/dL (0.55-1.02)
[2018-12-11] MEDS: ALBUTEROL/IPRATROPIUM 2.5MG/0.5MG, 3 ML NPPB SCH ×4 (07:00→19:51)
[2018-12-11] MEDS: INSULIN LISPRO 100 UNITS/ML, PEN MEDIUM DOSE SS SQ-INSULIN SCH ×4 (07:00→20:19)
[2018-12-11 07:02] VITALS: BP 153/84
[2018-12-11] MEDS: BUDESONIDE 0.5 MG/2 ML INHA NPPB SCH ×2 (08:02→19:51)
[2018-12-11] MEDS: SODIUM CHLORIDE 0.9% 1,000 ML IV SCH ×2 (08:21→17:35)
[2018-12-11] MEDS: GUAIFENESIN ER 600 MG TABLET PO SCH ×2 (08:22→21:44)
[2018-12-11] MEDS: SENNA/DOCUSATE TABLET PO SCH (08:22)
[2018-12-11] MEDS: SODIUM CHLORIDE FLUSH 10ML SYR IVF SCH ×2 (08:23→20:14)
[2018-12-11] MEDS: (Mirabegron** (Myrbetriq**) 50 MG) HOMEMEDPO SCH (08:23)
[2018-12-11] MEDS ORDERED: INSU100I13 SQ-INSULIN (11:31)
[2018-12-11] MEDS ORDERED: PRED20TA PO (11:31)
[2018-12-11] MEDS ORDERED: MERO1VIA15 IV (11:33)
[2018-12-11 12:10] VITALS: BP 157/87
[2018-12-11 19:33] VITALS: BP 146/84
[2018-12-11] MEDS: ONDANSETRON ODT 4 MG PO PRN (20:11)
[2018-12-11] MEDS: ATORVASTATIN 40 MG TABLET PO SCH (21:44)
[2018-12-11] MEDS: NICOTINE 7 MG/24 HR PATCH.TD24 TD SCH (21:44)
[2018-12-11] MEDS: INSULIN GLARGINE 100 UNITS/ML, PEN SQ-INSULIN SCH (21:44)
[2018-12-12] MEDS: MEROPENEM 1 GM in SODIUM CHLORIDE 0.9% 100 ML IV SCH ×2 (01:08→08:33)
[2018-12-12] MEDS: SODIUM CHLORIDE 0.9% 1,000 ML IV SCH ×2 (01:08→08:33)
[2018-12-12 01:44] VITALS: BP 138/72
[2018-12-12] MEDS: LEVOTHYROXINE 50 MCG TABLET PO SCH (05:38)
[2018-12-12] MEDS: HEPARIN 5,000 UNITS/ML, 1ML SQ SCH ×2 (05:38→11:49)
[2018-12-12] MEDS: CARVEDILOL 6.25 MG TABLET PO SCH (05:39)
[2018-12-12] MEDS: OMEPRAZOLE 20 MG CAPSULE.DR PO SCH (05:39)
[2018-12-12 06:14] LABS: BASOPHILS # (AUTO) 0.12 x10^3/uL (0-0.1); BASOPHILS % (AUTO) 1 % (0-1); EOSINOPHILS # (AUTO) 0.24 x10^3/uL (0-0.4); EOSINOPHILS % (AUTO) 2 % (1-7); LYMPHOCYTES # (AUTO) 2.14 x10^3/uL (1-3.4); LYMPHOCYTES % (AUTO) 16 % (22-44); MD NO; MEAN CORPUSCULAR HEMOGLOBIN 30.2 pg (27.0-34.8); MEAN CORPUSCULAR HGB CONC 32.8 g/dL (32.4-35.8); MEAN PLATELET VOLUME 7.1 fL (7.4-10.4); MONOCYTES # (AUTO) 0.88 x10^3/uL (0.2-0.8); MONOCYTES % (AUTO) 7 % (2-9); NEUTROPHILS % (AUTO) 74 % (42-75); PLATELET COUNT 243 x10^3/uL (130-400); RED BLOOD COUNT 4.81 x10^6/uL (3.82-5.3); RED CELL DISTRIBUTION WIDTH 14.1 % (9.6-15.2)
[2018-12-12 06:26] LABS: ANION GAP 4 mmol/L (5-15); CALCIUM 8.5 mg/dL (8.5-10.1); CHLORIDE 98 mmol/L (98-107)
[2018-12-12] MEDS: ALBUTEROL/IPRATROPIUM 2.5MG/0.5MG, 3 ML NPPB SCH ×3 (06:53→14:34)
[2018-12-12] MEDS: BUDESONIDE 0.5 MG/2 ML INHA NPPB SCH (06:54)
[2018-12-12] MEDS: INSULIN LISPRO 100 UNITS/ML, PEN MEDIUM DOSE SS SQ-INSULIN SCH ×2 (07:00→11:50)
[2018-12-12 07:18] VITALS: BP 162/82
[2018-12-12] MEDS: SODIUM CHLORIDE FLUSH 10ML SYR IVF SCH (08:33)
[2018-12-12] MEDS: GUAIFENESIN ER 600 MG TABLET PO SCH (08:33)
[2018-12-12] MEDS: (Mirabegron** (Myrbetriq**) 50 MG) HOMEMEDPO SCH (08:38)
[2018-12-12] MEDS: SENNA/DOCUSATE TABLET PO SCH (08:38)
[2018-12-12] MEDS: ACETAMINOPHEN 325 MG TABLET PO PRN (11:54)
[2018-12-12 12:47] VITALS: BP 159/87
== END 2018-12-12 16:59 | DRG 871 ==
LOC: ED 18:35 → EDIP 19:43 → 4EST 21:34
PROVIDERS: ADMIT Family Medicine; ATTEND Family Medicine
PROC: 0T9B70Z Drainage of Bladder with Drainage Device, Via Natural or Artificial Opening (ICD-10-PCS; principal; 2018-12-06)
DX: A41.9 Sepsis, unspecified organism (principal); J18.9 Pneumonia, unspecified organism; J96.01 Acute respiratory failure with hypoxia; D68.69 Other thrombophilia; E44.0 Moderate protein-calorie malnutrition; E22.2 Syndrome of inappropriate secretion of antidiuretic hormone; N39.0 Urinary tract infection, site not specified; J98.11 Atelectasis; B96.5 Pseudomonas (aeruginosa) (mallei) (pseudomallei) as the cause of diseases classified elsewhere; E03.9 Hypothyroidism, unspecified; E11.9 Type 2 diabetes mellitus without complications; E66.01 Morbid (severe) obesity due to excess calories; E78.5 Hyperlipidemia, unspecified; E86.1 Hypovolemia; E87.5 Hyperkalemia; E87.8 Other disorders of electrolyte and fluid balance, not elsewhere classified; F17.210 Nicotine dependence, cigarettes, uncomplicated; F41.1 Generalized anxiety disorder; I11.0 Hypertensive heart disease with heart failure; I50.9 Heart failure, unspecified; I27.20 Pulmonary hypertension, unspecified; K21.9 Gastro-esophageal reflux disease without esophagitis; N32.81 Overactive bladder; R32 Unspecified urinary incontinence; J43.9 Emphysema, unspecified; I35.0 Nonrheumatic aortic (valve) stenosis; Z88.0 Allergy status to penicillin; Z79.4 Long term (current) use of insulin; Z68.33 Body mass index [BMI] 33.0-33.9, adult; Z88.2 Allergy status to sulfonamides; Z88.1 Allergy status to other antibiotic agents
CPT/HCPCS: 36415; 71045; 71260; 80048; 80053; 81001; 82040; 82436; 82533; 82962; 83036; 83930; 83935; 84133; 84295; 84300; 84443; 84484; 85025; 87040; 87077; 87086; 87186; 93005; 94640; G0378; J0456; J0696; J1644; J2185; J7620; J7626; Q0162; Q9967; J1815; J1940; J2930; J7030; J7050; J7512

== ENCOUNTER 2019-07-18 15:17 | Outpatient (CLI) | payer MEDICARE, OTHER ==
[~2019-07-18 15:17] MED LIST changes: +ACET325T14 PO; +ALBU90AE INH; +CEPH-376 PO; -CEVI30CA4 PO; +CEVI30CA7 PO; +DULA1.5P INJ; +DULO30CA2 PO; +FLUT1AER INH; +HYDR-826 PO; -HYDR25TA11 PO; -IBUP-1484 PO; +IBUP-1902 PO; +INSU100I13 SQ-INSULIN; +IPRA3AMP30 NEB; +LORA-247 PO; -MAGN400T7 PO; +MAGN400T9 PO; +MERO1VIA24 IV; +ONDA4TAB13 SL; +POTA20PA25 PO; +PRED20TA PO; +TIZA4CAP PO; +TRIAMCINOLONE; +UMEC62.5 INH
== END 2019-07-18 23:59 | disposition home or self-care (01) ==
LOC: CFH 15:17
PROVIDERS: ATTEND Nurse Practitioner Primary Care
DX: E04.1 Nontoxic single thyroid nodule (principal); E03.9 Hypothyroidism, unspecified; H70.12 Chronic mastoiditis, left ear
CPT/HCPCS: 70450; 76536

== ENCOUNTER 2020-09-19 15:10 | Emergency (ER) | payer MEDICARE, OTHER ==
[~2020-09-19 15:10] MED LIST changes: +AMLO-211 PO; -AMLO10TA8 PO; -ASPI-515 PO; +ASPI-963 PO; -CIPR500T3 PO; +CIPR500T4 PO; -PANT40TA5 PO; +PANT40TA6 PO
--- NOTE | 2020-09-19 15:32 | NUR ---
the pt is a 75f bib ems for complaints of a skin infection in the groin and under the pannis and the facility where she lives thinks she has had a change in her mentation and is slower to respond than normal. She states she feels ok, just more fatigued than normal. She uses 4L home O2 24 hours a day. sp02, and bp monitors in place, call light within reach. Ems placed an 18g iv in the left AC before arrival.
[2020-09-19] MEDS ORDERED: FLUCONAZOLE 100 MG TABLET PO ONE (16:00)
[2020-09-19 16:06] LABS: BASOPHILS % (AUTO) 1 % (0-1); EOSINOPHILS % (AUTO) 2 % (1-7); LYMPHOCYTES % (AUTO) 12 % (22-44); MEAN CORPUSCULAR HEMOGLOBIN 26.9 pg (27.0-34.8); MEAN CORPUSCULAR HGB CONC 33.2 g/dL (32.4-35.8); MEAN PLATELET VOLUME 7.1 fL (7.4-10.4); MONOCYTES % (AUTO) 7 % (2-9); NEUTROPHILS % (AUTO) 79 % (42-75); PLATELET COUNT 250 x10^3/uL (130-400); RED BLOOD COUNT 5.02 x10^6/uL (3.82-5.3); RED CELL DISTRIBUTION WIDTH 15.8 % (9.6-15.2)
[2020-09-19] MEDS ORDERED: FLUCONAZOLE 100 MG TABLET ONE ×2 (16:09→16:23)
[2020-09-19 16:11] LABS: MD NO
[2020-09-19 16:21] LABS: ALBUMIN 3.3 g/dL (3.4-5.0); ANION GAP 4 mmol/L (5-15); CALCIUM 8.4 mg/dL (8.5-10.1); CHLORIDE 97 mmol/L (98-107); CREATININE 0.63 mg/dL (0.55-1.02)
[2020-09-19] MEDS ORDERED: DULO30CA2 PO (17:02)
[2020-09-19] MEDS ORDERED: FLUO20CA23 PO (17:05)
[2020-09-19] MEDS ORDERED: GABA300C PO (17:06)
[2020-09-19] MEDS ORDERED: HYDR-826 PO (17:08)
[2020-09-19] MEDS ORDERED: LISI-167 PO (17:10)
[2020-09-19] MEDS ORDERED: LORA-59 PO (17:11)
[2020-09-19] MEDS ORDERED: METF500T17 PO (17:11)
[2020-09-19] MEDS ORDERED: NITR100C PO (17:13)
[2020-09-19] MEDS ORDERED: POTA20PA25 PO (17:48)
[2020-09-19 18:43] VITALS: BP 155/89
--- NOTE | 2020-09-19 18:44 | NUR ---
pt resting comfortably on gurney, urine sample obtained and sent to lab. all monitors in place and call light within reach.
[2020-09-19 19:12] LABS: MICROSCOPIC AUTO
--- NOTE | 2020-09-19 19:47 | NUR ---
Patient discharge instructions given. All questions and concerns addressed. Patient lives at [facility]; Sonia, patient's previous RN states the [facility] facility has transportation for this patient when she is discharged. Attempted to contact facility x2 with no success; LVM.
--- NOTE | 2020-09-19 20:30 | NUR ---
LM arrived to take patient back to [facility]. Belongings with patient.
== END 2020-09-19 20:46 | disposition home or self-care (01) ==
LOC: ED 19:12
DX: B37.9 Candidiasis, unspecified (principal); E11.9 Type 2 diabetes mellitus without complications; I11.0 Hypertensive heart disease with heart failure; I50.9 Heart failure, unspecified; J44.9 Chronic obstructive pulmonary disease, unspecified; K21.9 Gastro-esophageal reflux disease without esophagitis; E03.9 Hypothyroidism, unspecified; E87.1 Hypo-osmolality and hyponatremia; Z87.891 Personal history of nicotine dependence
CPT/HCPCS: 36415; 80048; 81001; 82040; 85025; 99283